=== PATIENT | female | born 1960 | race Caucasian/White ===

== ENCOUNTER 2024-01-31 18:16 | Inpatient (IN) ==
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
[2024-01-31] MEDS: SODIUM CHLORIDE 0.9% 1,000 ML IV STA (18:46)
[2024-01-31] MEDS: ONDANSETRON INJ 2 MG/ML 2 ML VIAL IV STA (18:46)
[2024-01-31 19:11] LABS: iSTAT Creatinine 6.3 mg/dl (0.6-1.3); iSTAT Ionized Calcium 0.99 mmol/l (1.12-1.32); iSTAT Potassium 4.8 mmol/L (3.3-5.0)
[2024-01-31 19:32] LABS: Hematocrit (blood only) 43.2 % (37.0-47.0); Hemoglobin 13.2 g/dl (12.0-16.0); Mean Corpuscular Hemoglobin 27.7 pg (25.0-34.0); Mean Corpuscular Hgb Conc 30.6 g/dL (32.0-36.0); Mean Corpuscular Volume 90.6 fL (80.0-100.0); Mean Platelet Volume 11.3 fL (9.4-12.4); Platelet Count 376 K/uL (130-400); RDW Coefficient of Variation 14.2 % (11.5-14.5); RDW Standard Deviation 47.8 fL (36.4-46.3); Red Blood Count 4.77 M/uL (4.20-5.40)
[2024-01-31 19:38] LABS: Albumin Globulin Ratio 1.6 (0.9-2); Albumin Level 4.6 gm/dl (3.4-5.0); BUN Creatinine Ratio 8.1 (10-20); Bilirubin,Total 0.5 mg/dl (0.2-1.0); Calcium 8.8 mg/dl (8.6-10.3); Creatinine Clr Calc Pharmacy 9.1 ml/min; Est GFR (African American) 8.8 ml/min; Est GFR (Non-African American) 7.6 ml/min; Globulin 2.9 gm/dl (2.5-4.0); Magnesium 1.3 mg/dl (1.7-2.4); Potassium 4.9 mmol/L (3.5-5.1); Total Protein 7.5 gm/dl (6.0-8.3); Troponin I High Sensitivity 8.3 pg/ml (0-14)
[2024-01-31 19:39] LABS: INR 1.1 (0.9-1.1); Partial Thromboplastin Ratio 1.2; Partial Thromboplastin Time 31 Seconds (21-31); Prothrombin Time 11.6 Seconds (9.0-12.0)
[2024-01-31] MEDS: PIPERACILLIN/TAZOBACTAM 4.5 GM/100 ML BAG IV ONE (20:13)
[2024-01-31] MEDS: SODIUM CHLORIDE 0.9% 1,000 ML IV ONE (20:13)
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
[2024-01-31] MEDS: MAGNESIUM SULFATE / D5W 1 GM/100 ML BAG IV STA (20:20)
[2024-01-31 20:43] LABS: Base Excess VBG -21.8 mEq/L; HCO3 VBG 7 mmol/L; Oxygen Saturation VBG 93.4 %; PCO2 VBG 25 mmHg (38-50); PO2 VBG 77 mmHg; pH VBG 7.06 (7.36-7.41)
[2024-01-31 21:18] LABS: Basophils # (auto) 0.05 K/uL (0.00-0.20); Basophils % (auto) 0.2 %; Echinocytes 2+; Immature Granulocytes % (auto) 0.7 %; Lymphocytes % (auto) 6.9 %; Monocytes # (auto) 1.61 K/uL (0.11-0.59); Monocytes % (auto) 5.5 %; Neutrophils # (auto) 25.24 K/uL (1.40-6.50); Neutrophils % (auto) 86.7 %; Polychromasia 1+
--- NOTE | 2024-01-31 21:24 | CT Scan Report ---
Exam(s): CT ABDOMEN + PELVIS Without Contrast EXAM: CT Abdomen and Pelvis Without Intravenous Contrast CLINICAL HISTORY: Vomiting. TECHNIQUE: Axial computed tomography images of the abdomen and pelvis without intravenous contrast. CTDI is 15.52 mGy and DLP is 725.98 mGy-cm. Automated exposure control was utilized for the study. A dose lowering technique was utilized adhering to the principles of ALARA. COMPARISON: Renal ultrasound 11/17/2023 FINDINGS: Lung bases: Unremarkable. No mass. No consolidation. Mediastinum: Moderate hiatal hernia. ABDOMEN: Liver: Unremarkable. Gallbladder and bile ducts: Unremarkable. No calcified stones. No ductal dilation. Pancreas: Unremarkable. No ductal dilation. Spleen: Unremarkable. No splenomegaly. Adrenals: Unremarkable. No mass. Kidneys and ureters: Unremarkable. No obstructing stones. No hydronephrosis. Stomach and bowel: Unremarkable. No obstruction. No mucosal thickening. PELVIS: Appendix: Normal appendix. Bladder: Thickening of the urinary bladder wall could relate to nondistention or cystitis. No stones. Reproductive: Unremarkable as visualized. ABDOMEN and PELVIS: Intraperitoneal space: Unremarkable. No free air. No significant fluid collection. Bones/joints: There are degenerative changes of the spine. No acute fracture. No dislocation. Soft tissues: Unremarkable. Vasculature: Unremarkable. No abdominal aortic aneurysm. Lymph nodes: Unremarkable. No enlarged lymph nodes. IMPRESSION: 1. Thickening of the urinary bladder wall could relate to nondistention or cystitis. 2. Moderate hiatal hernia. Electronically signed by: Lala Patel MD 01/31/24 21:23 PM
[2024-01-31] MEDS ORDERED: PROCHLORPERAZINE MALEATE 5 MG TAB PO PRN (21:30)
[2024-01-31] MEDS ORDERED: GLUCOSE 40% GEL 15 GM TUBE PO PRN (21:30)
[2024-01-31] MEDS ORDERED: CARBOHYDRATES FOR HYPOGLYCEMIA PO PRN (21:30)
[2024-01-31] MEDS ORDERED: GLUCOSE 10 TAB/TUBE PO PRN (21:30)
[2024-01-31] MEDS ORDERED: GLUCAGON FOR INJ 1 MG VIAL SQ PRN (21:30)
[2024-01-31] MEDS ORDERED: DEXTROSE 50% 50 ML SYRINGE IV PRN (21:30)
[2024-01-31] MEDS: PLASMA-LYTE A 1,000 ML IV SCH (21:33)
[2024-01-31] MEDS: MAGNESIUM SULFATE / D5W 1 GM/100 ML BAG IV SCH (21:38)
[2024-01-31] MEDS: PANTOprazole 40 MG in SYRINGE 0 ML IV ONE (22:00)
[2024-01-31 22:27] LABS: C Reactive Protein 1.58 mg/dl (0-0.5)
[2024-02-01 00:01] LABS: Base Excess VBG -16.2 mEq/L; HCO3 VBG 11 mmol/L; Oxygen Saturation VBG 68.6 %; PCO2 VBG 29 mmHg (38-50); PO2 VBG 42 mmHg; pH VBG 7.18 (7.36-7.41)
[2024-02-01 00:20] LABS: Calcium 7.5 mg/dl (8.6-10.3); Potassium 5.7 mmol/L (3.5-5.1)
[2024-02-01] MEDS ORDERED: STAT IV/IM STA (00:34)
[2024-02-01 00:53] LABS: BUN Creatinine Ratio 8.6 (10-20); Creatinine Clr Calc Pharmacy 9.6 ml/min; Est GFR (African American) 9.4 ml/min; Est GFR (Non-African American) 8.1 ml/min
[2024-02-01] MEDS: CALCIUM GLUCONATE 1,000 MG/60 ML BAG IV STA (01:08)
[2024-02-01] MEDS: SODIUM BICARBONATE 8.4% 75 MEQ in SODIUM CHLORIDE 0.45 % 1,000 ML IV SCH (01:08)
[2024-02-01 01:34] LABS: Appearance Urine Cloudy (Clear); Bacteria Urine Automated None Seen (None Seen); Bilirubin Urine Negative (Negative); Blood Urine 1+ (Negative); Color Urine Yellow; Glucose Urine UA Negative (Negative); Granular Casts Urine Present /lpf (None Prsent); Ketones Urine 3+ (Negative); Leukocyte Esterase Urine Negative (Negative); Nitrite Urine Negative (Negative); Protein Urine 2+ (Negative); RBC Urine Automated 0-2 /hpf (0-2); Specific Gravity Urine 1.013 (1.000-1.030); Urobilinogen Urine Negative (Negative); WBC Urine Automated 0-5 /hpf (0-5)
--- NOTE | 2024-02-01 06:36 | Hospitalist Progress Note ---
Date of Service February 01, 2024 Assessment & Plan (1) Tachycardia: (2) GERD without esophagitis: (3) Type 2 diabetes mellitus: (4) High anion gap metabolic acidosis: (5) Lactic acid acidosis: (6) Hypomagnesemia: (7) Nausea & vomiting: (8) Acute renal failure: (9) Status post total right knee replacement: Plan Keturah is a 63 year old female with PMH of T2DM presenting acute renal injury. (1) Acute renal failure: Plan: BUN 51, creatinine 5.63 (baseline 0.73) Hx of SEAN in August 2023 after diclofenac use, recent NSAID use (diclofenac 50mg BID x 4 weeks and aspirin 81mg BID) FENa 7.7% indicating intrinsic SEAN / ATN Strict I&O monitoring, [place] catheter placed Nephrology consultation Avoid NSAIDs/nephrotoxic agents Continue trending K, telemetry (2) High anion gap metabolic acidosis: Plan: VBG: pH 7.24, Co2 32, O2 35, HCO3 14; Improving Trend VBG and BMPs If trending in the wrong direction, will consider starting bicarb drip (3) Hypomagnesemia: Plan: Hypomagnesemia at 1.3 on arrival Magnesium sulfate 1 g x 3 administered, improved (4) Nausea & vomiting: Plan: Acute onset of N/V on the evening of 01/29 Leukocytosis at 18.7 with neutrophil predominance; afebrile Procalcitonin WNL, follow blood cultures Compazine 5mg IV q6h as needed for nausea and vomiting Zofran as needed; however, patient reports it does not work for her Continue IVF resuscitation CBC, BMP, Mag, VBG (5) Type 2 diabetes mellitus: Plan: Last A1c at 6.1% on 11/21/2023 Hold metformin Will defer insulin in setting of SEAN T2DM diet BSG ACHS Monitor for hypoglycemia with reduced po intake Adjust regimen as needed A1c 5.3 today (6) GERD without esophagitis: Plan: Hold PRN prilosec Start Protonix IV 40mg daily (7) Tachycardia: Plan: Sinus tachycardia on arrival Suspect secondary to dehydration/GI losses Clinically, patient denies chest pain, pleuritic CP, hemoptysis, or SOB Continuous telemetry monitoring IVF resuscitation (as above) (8) Status post total right knee replacement: Plan: S/p right TKR on 12/13/23 Continue oxycodone 5mg p.o. q6h as needed for pain Plan Disposition: Admit to PCU telemetry Full code T2DM, dialysis renal diet VTE PPx: SCDs Admission and Anticipated Discharge Date Admission Date: January 31, 2024 Supervising Physician Co-Signing Physician Notes I personally examined the patient and verified all myrick points of history and exam, discussed case, and agree with decision making with Dr Marquez Feeling better than last night, but still quite fatigued and somewhat nauseated. Patient and both endorse that she has had a very poor appetite at least since the week before her surgery. It is somewhat difficult for them to put a timeline exactly when she started with early satiety, but vaguely think that she was probably eating okay at [facility] and [facility]. notes she has lost 25-30 pounds since her knee surgery. Knee pain is basically mild. Bowel movements 2-3 days a week. No abdominal painjust feels full extremely easily. Eats a few bites and then has to stop due to feeling full. Vitals noted, in general she is awake and alert oriented pleasant no distress. HEENT normocephalic atraumatic mucous membranes moist. Abdomen is soft nondistended nontender no masses organomegaly. Extremities without sinus clubbing or edema, knee incision appears to be healing well. Acute renal failuremost likely ATNwhich in turn is most likely due to dehydration and NSAIDs. Fortunately no acute indications for dialysiscontinue to watch closely, follow serial exams/serial labs, appreciate nephrology backup nausea and vomitingthis seems to be improvingand likely was related to uremia; at the same time her poor p.o. intake and early satiety predate when she was likely uremic. Differential somewhat broad encompassing anything from anxiety (which she endorses at least preop), slow motility, obstructing mass/etc. (seems less likely given that her symptomsalthough somewhat difficult to obtain an accurate historyseem to have started right around the time of her surgery)follow serial exams/serial history, and then workup further as the situation presents itself SIRSno signs or symptoms of infectionsuspect the white count was largely demargination due to vomiting, and her heart rate probably due to dehydration and nausea. No clear reason for antibiotics at this timebut continue to follow closely. DVT prophylaxisheparin subcu otherwise as above Subjective Pt is a 63 yo female with a past medical history of T2DM, GERD, recent knee replacement who presents to the hospital on 01/30 for increased nausea, vomiting, low appetite, and decreased urine production. Today she is still nausea, but this has improved and she was able to have a few bites of food this morning. No vomiting or bowel movement since yesterday. No fever or chills. No shortness of breath or cough. Review of Systems Review of Systems: Constitutional: denies fever, chills HEENT: denies congestion, sore throat Cardio: denies chest pain, palpitations Resp: denies shortness of breath, cough GI: denies abdominal pain, vomiting, constipation, diarrhea : catheter in place Neuro: denies new numbness, tingling, weakness Physical Exam Physical Exam: General:Alert and oriented, no acute distress, appears fatigued HEENT: Normocephalic, moist oral mucosa, Cardio: Tachycardic, no murmur Resp:Rales at bilateral lung bases, no wheezes GI: Soft and nontender, nondistended, bowel sounds active Skin: Warm, pink, dry. Psych: Mood-affect congruence. Results & Data Results & Data Vital Signs (Past 12 Hours) Vital Signs Temp Pulse Pulse Resp BP Pulse Ox O2 Del Method 02/01/24 03:05 36.9 C 110 H 16 124/71 98 Room Air 02/01/24 01:23 36.8 C 107 H 14 120/71 97 Room Air 01/31/24 23:43 01/31/24 23:07 116 H 01/31/24 21:30 121 H 01/31/24 21:20 37 C 125 H 20 144/82 H 97 Room Air 01/31/24 20:44 126 H 19 134/79 98 01/31/24 20:00 125 H 18 98 Room Air 01/31/24 19:07 121 H 01/31/24 18:58 125 H 19 142/89 H 98 Room Air 01/31/24 18:58 124 H 24 99 Room Air O2 Del Method 02/01/24 03:05 02/01/24 01:23 01/31/24 23:43 Room Air 01/31/24 23:07 01/31/24 21:30 01/31/24 21:20 01/31/24 20:44 01/31/24 20:00 01/31/24 19:07 01/31/24 18:58 01/31/24 18:58 Resident Activity Tracking Resident Involvement: Resident Care Provided Care Provided: Adult Hospital Medicine Resident Supervision Co-Signing Physician Notes I have personally examined the patient and agree with student doctor Harry with exceptions noted below: #Acute renal failure - Cr baseline wnl around 0.6, today 5.63 - FeNa is 7.7% intrinsic - based on pt's history, suspect her chronic poor appetite caused some level of dehydration and that NSAID use of diclofenac twice daily for 4 weeks then caused further injury and pt now has an ATN - will hydrate with IVF today and encourage po intake - nephrology consulted, no dialysis indication at this time #HAGMA - initial pH 7.06, improved today to 7.24 - will continue bicarb today #Nausea/vomiting #Poor appetite with early satiety - notes chronic issue with poor appetite for maybe the last few months, worsened after knee surgery in November - pt states that she just feels full after a few bites of food - pt may benefit from further GI workup once discharged from the hospital for question or gastroparesis or other GI pathology as the cause of her poor intake secondary to early satiety (7) Nausea & vomiting Vomiting type: unspecified Qualified Code(s): R11.2 - Nausea with vomiting, unspecified (8) Acute renal failure Acute renal failure type: unspecified Qualified Code(s): N17.9 - Acute kidney failure, unspecified
[2024-02-01 07:19] LABS: Base Excess VBG -12.5 mEq/L; HCO3 VBG 14 mmol/L; Oxygen Saturation VBG < 60.0 %; PCO2 VBG 32 mmHg (38-50); PO2 VBG 35 mmHg; pH VBG 7.24 (7.36-7.41)
--- NOTE | 2024-02-01 07:31 | XRay Report ---
XR chest 1V portable HISTORY: Vomiting. COMPARISON: Chest 11/21/2023. FINDINGS: No pneumothorax. No pleural effusions. Stable punctate calcified granuloma within the left lung apex. Otherwise, the lungs are clear. The heart is normal in size. There is a moderate hiatus he rnia, unchanged. IMPRESSION: No significant change compared to the prior study. No acute process. ACT 112: Negative or not required by law. Electronically signed by: Juan Hobbs M.D. 02/01/2024 7:30 AM
[2024-02-01 07:33] LABS: Estimated Average Glucose 105 mg/dl; Hemoglobin A1C 5.3 % (4.5-5.6)
[2024-02-01 07:54] LABS: BUN Creatinine Ratio 9.1 (10-20); Calcium 7.5 mg/dl (8.6-10.3); Creatinine Clr Calc Pharmacy 8.9 ml/min; Est GFR (African American) 8.7 ml/min; Est GFR (Non-African American) 7.5 ml/min; Magnesium 2.3 mg/dl (1.7-2.4); Potassium 5.1 mmol/L (3.5-5.1)
[2024-02-01 08:30] LABS: Basophils # (auto) 0.02 K/uL (0.00-0.20); Basophils % (auto) 0.1 %; Hematocrit (blood only) 35.6 % (37.0-47.0); Hemoglobin 11.4 g/dl (12.0-16.0); Immature Granulocytes # (auto) 0.11 K/uL (0.01-0.20); Immature Granulocytes % (auto) 0.6 %; Lymphocytes # (auto) 1.45 K/uL (1.20-3.40); Lymphocytes % (auto) 7.7 %; Mean Corpuscular Hemoglobin 27.9 pg (25.0-34.0); Mean Corpuscular Volume 87.3 fL (80.0-100.0); Mean Platelet Volume 10.7 fL (9.4-12.4); Monocytes # (auto) 1.13 K/uL (0.11-0.59); Neutrophils # (auto) 16.01 K/uL (1.40-6.50); Neutrophils % (auto) 85.6 %; Platelet Count 282 K/uL (130-400); RDW Coefficient of Variation 14.5 % (11.5-14.5); RDW Standard Deviation 46.8 fL (36.4-46.3); Red Blood Count 4.08 M/uL (4.20-5.40); White Blood Count 18.72 K/ul (4.8-10.8)
[2024-02-01] MEDS: PANTOprazole 40 MG in SYRINGE 0 ML IV SCH (10:48)
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
--- NOTE | 2024-02-01 13:02 | Billing Data ---
Date of Service February 01, 2024 Coding Level of Care Code 94261 SUB INP/OBS CARE
[2024-02-01] MEDS: ONDANSETRON INJ 2 MG/ML 2 ML VIAL IV PRN (20:51)
[2024-02-01] MEDS: HEPARIN SOD 5,000 UNIT/0.5 ML VIAL SQ SCH (20:52)
[2024-02-01] MEDS ORDERED: ROSUVASTATIN CALCIUM 20 MG TAB PO SCH (21:00)
--- NOTE | 2024-02-02 00:21 | Electrocardiogram Report ---
Test Reason : Blood Pressure : / mmHG Vent. Rate : 130 BPM Atrial Rate : 130 BPM P-R Int : 132 ms QRS Dur : 062 ms QT Int : 302 ms P-R-T Axes : 056 050 064 degrees QTc Int : 444 ms Sinus tachycardia Nonspecific T wave abnormality When compared with ECG of 21-NOV-2023 13:26, Vent. rate has increased BY 47 BPM Confirmed by Rhys De Leon ([id number]) on 02/02/2024 12:21:11 AM Referred By: REFERRED SELF Confirmed By:Rhys De Leon
[2024-02-02] MEDS: PROCHLORPERAZINE 5 MG in SYRINGE 4 ML IV PRN (01:29)
--- NOTE | 2024-02-02 06:42 | Hospitalist Progress Note ---
Date of Service February 02, 2024 Assessment & Plan (1) Tachycardia: (2) GERD without esophagitis: (3) Type 2 diabetes mellitus: (4) High anion gap metabolic acidosis: (5) Lactic acid acidosis: (6) Hypomagnesemia: (7) Nausea & vomiting: (8) Acute renal failure: (9) Status post total right knee replacement: Plan Keturah is a 63 year old female with PMH of T2DM presenting acute renal injury. #Acute renal failure, ATN - Cr baseline wnl around 0.6, on admission was 5.63, Cr today 6.2 - Hx of SEAN in August 2023 after diclofenac use, recent NSAID use (diclofenac 50mg BID x 4 weeks and aspirin 81mg BID) - FENa 7.7% indicating intrinsic SEAN / ATN - based on pt's history, suspect her chronic poor appetite caused some level of dehydration and that NSAID use of diclofenac twice daily for 4 weeks then caused further injury and pt now has an ATN - Nephrology consultation; no acute dialysis indication at this time, continue to encourage intake and hydrate #HAGMA, improving - initial pH 7.06, improved with IV sodium bicarb - will continue bicarb today id advised by nephrology - AG today 17 (39 on admission) #Nausea/vomiting #Poor appetite with early satiety - notes chronic issue with poor appetite for maybe the last few months, worsened after knee surgery in November with acute worsening 01/29 - pt states that she just feels full after a few bites of food - was on ozempic but only for 2 doses, last dose 12/06 - pt may benefit from further GI workup once discharged from the hospital for question or gastroparesis or other GI pathology as the cause of her poor intake secondary to early satiety #Type 2 diabetes mellitus: - Last A1c at 5.3% 01/31 - Hold metformin, Will defer insulin in setting of SEAN #GERD without esophagitis - Hold home po prilosec while po intake is poor, will do Protonix IV 40mg daily #Status post total right knee replacement - S/p right TKR on 12/13/23 - Continue oxycodone 5mg p.o. q6h as needed for pain VTE PPx: SCDs Admission and Anticipated Discharge Date Admission Date: January 31, 2024 Supervising Physician Co-Signing Physician Notes I personally examined the patient and verified all myrick points of history and exam, discussed case, and agree with decision making with Dr Marquez feels slightly better than yesterday. quite tired, still early satiety, but a little less nauseated Vitals noted, in general she is awake and alert oriented pleasant no distress. HEENT normocephalic atraumatic mucous membranes moist. Abdomen is soft nondistended nontender no masses organomegaly. Extremities without sinus clubb ing or edema, knee incision appears to be healing well. Acute renal failuremost likely ATNwhich in turn is most likely due to dehydration and NSAIDs. Fortunately still no acute indications for d ialysiscontinue to watch closely, follow serial exams/serial labs, appreciate nephrology backup nausea and vomitingthis seems to still be improvingand likely was acutely related to uremia; at the same time her poor p.o. intake and early satiety predate when she was likely uremic. Differential somewhat broad encompassing anything from anxiety (which she endorses at least preop), slow motility (either de lachelle or GLP related), functional dyspepsia, obstructing mass/etc. (seems less likely given that her symptomsalthough somewhat difficult to obtain an accurate historyseem to have started right around the time of her surgery)follow serial exams/serial history, and then workup further as the situation presents itself - but with slight improvement today - continue to follow for now SIRSno signs or symptoms of infectionsuspect the white count was largely demargination due to vomiting, and her heart rate probably due to dehydration and nausea. Still no clear reason for antibiotics at this timebut continue to follow closely. DVT prophylaxisheparin subcu otherwise as above Subjective Today, pt states since last night she has been feeling quite a bit better, not as weak and exhausted. She states she has struggled to eat for the last few weeks and it has improved some here as she was able to eat a few bites last night prior to feeling full. Overall feeling better today. No chest pain or SOB. Did take some Compazine last night for nausea which helped. She states when it comes to her ozempic, she took two doses with her last dose being December 06 since she was not suppose to take any after that point due to her surgery. She did not continue to take any after surgery. States her went to get her medications in December and it had automatically refilled so he just picked everything up, but she had not used it. noted yesterday afternoon that she has maybe lost 20 lbs since her knee surgery due to very poor intake. Review of Systems Review of Systems: Per HPI. Physical Exam Physical Exam: General:Alert and oriented, no acute distress, more lively today but still fatigued appearing HEENT: Normocephalic, moist oral mucosa, Cardio: Regular rate and rhythm, no murmur, Resp:Lungs clear to auscultation b/l, no wheezes or rhonchi, GI: Soft and nontender, nondistended, bowel sounds active Skin: Warm, pink, dry, Results & Data Results & Data Vital Signs (Past 12 Hours) Vital Signs Temp Pulse Pulse Resp BP Pulse Ox O2 Del Method 02/02/24 02:42 36.9 C 86 18 109/70 93 Room Air 02/02/24 01:35 36.8 C 02/01/24 23:20 88 02/01/24 23:00 02/01/24 22:34 37.2 C 95 H 18 118/70 95 Room Air O2 Del Method 02/02/24 02:42 02/02/24 01:35 02/01/24 23:20 02/01/24 23:00 Room Air 02/01/24 22:34 Resident Activity Tracking Resident Involvement: Resident Care Provided Care Provided: Adult Hospital Medicine (7) Nausea & vomiting Vomiting type: unspecified Qualified Code(s): R11.2 - Nausea with vomiting, unspecified (8) Acute renal failure Acute renal failure type: unspecified Qualified Code(s): N17.9 - Acute kidney failure, unspecified
[2024-02-02 07:10] LABS: Basophils # (auto) 0.02 K/uL (0.00-0.20); Basophils % (auto) 0.2 %; Eosinophils # (auto) 0.01 K/uL (0.00-0.50); Eosinophils % (auto) 0.1 %; Hematocrit (blood only) 29.3 % (37.0-47.0); Hemoglobin 9.8 g/dl (12.0-16.0); Immature Granulocytes # (auto) 0.07 K/uL (0.01-0.20); Immature Granulocytes % (auto) 0.7 %; Lymphocytes # (auto) 1.69 K/uL (1.20-3.40); Mean Corpuscular Hemoglobin 27.8 pg (25.0-34.0); Mean Corpuscular Hgb Conc 33.4 g/dL (32.0-36.0); Mean Platelet Volume 10.9 fL (9.4-12.4); Monocytes # (auto) 0.67 K/uL (0.11-0.59); Monocytes % (auto) 6.4 %; Neutrophils # (auto) 8.07 K/uL (1.40-6.50); Neutrophils % (auto) 76.6 %; Platelet Count 221 K/uL (130-400); RDW Coefficient of Variation 14.4 % (11.5-14.5); RDW Standard Deviation 43.7 fL (36.4-46.3); Red Blood Count 3.53 M/uL (4.20-5.40); White Blood Count 10.53 K/ul (4.8-10.8)
[2024-02-02 07:23] LABS: BUN Creatinine Ratio 9.5 (10-20); Calcium 6.9 mg/dl (8.6-10.3); Creatinine Clr Calc Pharmacy 8.1 ml/min; Est GFR (African American) 7.7 ml/min; Est GFR (Non-African American) 6.6 ml/min; Potassium 4.1 mmol/L (3.5-5.1)
--- NOTE | 2024-02-02 10:47 | Nephrology Progress Note ---
Date of Service February 02, 2024 Assessment & Plan (1) Acute renal failure: (2) High anion gap metabolic acidosis: (3) Nausea & vomiting: (4) Type 2 diabetes mellitus without complication, without long-term current use of insulin: (5) Anemia: Plan 63-year-old female with baseline normal renal function, baseline creatinine 0.6- 0.7, admitted with acute kidney injury, hyperkalemia and metabolic acidosis with history of poor p.o. intake for weeks and nausea and vomiting for 2 days. Blood pressure was stable but clinically volume depleted. Urinalysis with low grade proteinuria but no hematuria. Renal imaging with no postrenal obstruction. SEAN most likely secondary to ATN with volume depletion and poor p.o. intake for days to weeks. Kidney function continues to worsen rapidly, creatinine up to 6.2, hypocalcemia and dropping hemoglobin but potassium and bicarbonate imp roved. Relatively low urine output but no sign of volume overload. Blood pressures staying relatively stable. --Change IV fluid to normal saline, encourage p.o. intake, monitor intake and output and aim for net positive --Calcium gluconate 1 g IV x 1 dose now --Although likelihood is low, considering some proteinuria, rapid worsening of kidney function will order serology. --Iron study, B12, folate -- Avoid all nephrotoxic medications including NSAIDs. -- No indication for dialysis at this time, no significant uremic symptoms except some nausea and fatigue, continue to monitor electrolyte, volume status closely and assess for any need for dialysis. Kidney function might continue to worsen before stabilizing. Considering the degree of renal impairment, even if kidney function starts to stabilize, it may take time to see significant improvement. Admission and Anticipated Discharge Date Admission Date: January 31, 2024 Valerie Rebollar was seen and evaluated this morning. Overall she feels fatigued and exhausted. Continues to have nausea but no vomiting. No diarrhea or abdominal pain. No fever or chills. No shortness of breath or chest pain. Blood pressure stable. Urine output relatively low, only 400 mL over last 24 hours. Kidney function continues to worsen rapidly, creatinine up to 6.2. Metabolic acidosis resolved but calcium dropped further. Hemoglobin dropped to 9.8. Review of Systems Review of Systems: Detailed review of system was done and pertinent positives and negatives are mentioned above. Physical Exam Constitutional: WD/WN, vitals as above + ill appearing; no acute distress Eyes: + anicteric sclerae Respiratory: Auscultation: lungs clear to auscultation bilaterally Cardiovascular: RRR, no murmur, no edema Gastrointestinal (Abdomen): Inspection/Auscultation: abdomen normal to inspection Percussion/Palpation: abdomen soft; abdomen nontender Neurologic: no focal motor deficits Psychiatric: Orientation: alert and oriented x 3 Affect: euthymic affect Results & Data Vital Signs (Past 12 Hours) Vital Signs Temp Pulse Pulse Resp BP Pulse Ox O2 Del Method 02/02/24 07:23 36.8 C 94 H 18 125/76 93 Room Air 02/02/24 02:42 36.9 C 86 18 109/70 93 Room Air 02/02/24 01:35 36.8 C 02/01/24 23:20 88 02/01/24 23:00 O2 Del Method 02/02/24 07:23 02/02/24 02:42 02/02/24 01:35 02/01/24 23:20 02/01/24 23:00 Room Air PG Care Time/CCT Total # of Minutes Spent Total Time Spent with Patient: Total time spent is greater than 50% in coordination of care (as documented) at patient's floor/unit and/or counseling patient: Coding Level of Care Code 76976 SUB INP/OBS CARE 3/50MIN Diagnoses Acute renal failure N17.9 Acute renal failure type: unspecified High anion gap metabolic acidosis E87.29 Nausea & vomiting R11.2 Vomiting type: unspecified Type 2 diabetes mellitus without complication, without long-term current use of insulin E11.9 Anemia D64.9 (1) Acute renal failure Acute renal failure type: unspecified Qualified Code(s): N17.9 - Acute kidney failure, unspecified (3) Nausea & vomiting Vomiting type: unspecified Qualified Code(s): R11.2 - Nausea with vomiting, unspecified
[2024-02-02] MEDS: SODIUM CHLORIDE 0.9% 1,000 ML IV SCH (13:02)
[2024-02-02] MEDS: CALCIUM GLUCONATE 1,000 MG/60 ML BAG IV STA (13:02)
[2024-02-02 13:12] LABS: Folate (Folic Acid),Ser orPlas 5.78 ng/ml (>5.38)
--- NOTE | 2024-02-02 16:28 | Billing Data ---
Date of Service February 02, 2024 Coding Level of Care Code 69209 SUB INP/OBS CARE
[2024-02-03 06:14] LABS: Basophils # (auto) 0.02 K/uL (0.00-0.20); Basophils % (auto) 0.2 %; Eosinophils # (auto) 0.01 K/uL (0.00-0.50); Eosinophils % (auto) 0.1 %; Hematocrit (blood only) 30.7 % (37.0-47.0); Hemoglobin 10.5 g/dl (12.0-16.0); Immature Granulocytes # (auto) 0.04 K/uL (0.01-0.20); Immature Granulocytes % (auto) 0.4 %; Lymphocytes # (auto) 0.93 K/uL (1.20-3.40); Lymphocytes % (auto) 9.5 %; Mean Corpuscular Hemoglobin 28.3 pg (25.0-34.0); Mean Corpuscular Hgb Conc 34.2 g/dL (32.0-36.0); Mean Corpuscular Volume 82.7 fL (80.0-100.0); Mean Platelet Volume 10.8 fL (9.4-12.4); Monocytes # (auto) 0.71 K/uL (0.11-0.59); Monocytes % (auto) 7.3 %; Neutrophils # (auto) 8.07 K/uL (1.40-6.50); Neutrophils % (auto) 82.5 %; Platelet Count 206 K/uL (130-400); RDW Coefficient of Variation 13.9 % (11.5-14.5); RDW Standard Deviation 41.6 fL (36.4-46.3); Red Blood Count 3.71 M/uL (4.20-5.40); White Blood Count 9.78 K/ul (4.8-10.8)
[2024-02-03 06:32] LABS: BUN Creatinine Ratio 8.2 (10-20); Calcium 7.1 mg/dl (8.6-10.3); Creatinine Clr Calc Pharmacy 6.8 ml/min; Est GFR (African American) 6.2 ml/min; Est GFR (Non-African American) 5.3 ml/min; Magnesium 1.9 mg/dl (1.7-2.4); Potassium 4.2 mmol/L (3.5-5.1)
--- NOTE | 2024-02-03 06:56 | Hospitalist Progress Note ---
Date of Service February 03, 2024 Assessment & Plan (1) Tachycardia: (2) GERD without esophagitis: (3) Type 2 diabetes mellitus: (4) High anion gap metabolic acidosis: (5) Lactic acid acidosis: (6) Hypomagnesemia: (7) Nausea & vomiting: (8) Acute renal failure: (9) Status post total right knee replacement: Plan Keturah is a 63 year old female with PMH of T2DM presenting acute renal injury. #Acute renal failure, ATN - Cr baseline wnl around 0.6, on admission was 5.63, Cr today 7.45 - Hx of SEAN in August 2023 after diclofenac use, recent NSAID use (diclofenac 50mg BID x 4 weeks and aspirin 81mg BID) - FENa 7.7% indicating intrinsic SEAN / ATN - based on pt's history, suspect her chronic poor appetite caused some level of dehydration and that NSAID use of diclofenac twice daily for 4 weeks then caused further injury and pt now has an ATN - Nephrology consultation; no acute dialysis indication at this time, continue to encourage intake and hydrate #HAGMA, improving - initial pH 7.06, improved with IV sodium bicarb - sodium bicarb transitioned to NSS per nephro - AG today 16 (39 on admission) #Nausea/vomiting #Poor appetite with early satiety - notes chronic issue with poor appetite for maybe the last few months, worsened after knee surgery in November with acute worsening 01/29 - pt states that she just feels full after a few bites of food - was on ozempic but only for 2 doses, last dose 12/06 - pt may benefit from further GI workup once discharged from the hospital for question or gastroparesis or other GI pathology as the cause of her poor intake secondary to early satiety #Type 2 diabetes mellitus: - Last A1c at 5.3% 01/31 - Hold metformin, Will defer insulin in setting of SEAN #GERD without esophagitis - Hold home po prilosec while po intake is poor, will do Protonix IV 40mg daily #Status post total right knee replacement - S/p right TKR on 12/13/23 - Continue oxycodone 5mg p.o. q6h as needed for pain VTE PPx: SCDs Admission and Anticipated Discharge Date Admission Date: January 31, 2024 Supervising Physician Co-Signing Physician Notes I personally examined the patient and verified all myrick points of history and exam, discussed case, and agree with decision making with Dr Marquez feeling more nauseated. Really cannot eat well. Nephrology input appreciated. No abdominal painjust very pervasive nausea. Vitals noted, in general she is awake and alert oriented pleasant no distress. HEENT normocephalic atraumatic mucous membranes moist. Abdomen is soft nondistended nontender no masses organomegaly. Extremities without sinus clubbing or edema, knee incision appears to be healing well. Acute renal failuremost likely ATNwhich in turn is most likely due to dehydration and NSAIDs. Fortunately still no acute indications for dialysiscontinue to watch closely, follow serial exams/serial labs, appreciate nephrology backup; At the same time unfortunately her creatinine continues to worsen and I worry that her nausea may be more of a uremic nausea acutely. Agree with nephrology might end up needing dialysis at least acutely sooner rather than latercontinue to follow. nausea and vomiting Worse again todayacutely related to uremia; at the same time her poor p.o. intake and early satiety predate when she was likely uremic. Differential somewhat broad encompassing anything from anxiety (which she endorses at least preop), slow motility (either de lachelle or GLP related), functional dyspepsia, obstructing mass/etc. (seems less likely given that her symptomsalthough somewhat difficult to obtain an accurate historyseem to have started right around the time of her surgery)follow serial exams/serial history, and then workup further as the situation presents itself - with symptomatic worsening todaytwice daily Pepcid/twice daily Protonix; already on Zofran, hesitate to utilize much Phenergan, on Compazine. Encourage small amounts of p.o. intake to keep something in her stomach. SIRSno signs or symptoms of infectionsuspect the white count was largely demargination due to vomiting, and her heart rate probably due to dehydration and nausea. Has not shown any indication for antibiotics DVT prophylaxisheparin subcu otherwise as above Subjective Today, pt states that she feels better today than she did yesterday but did have some dry heaving this morning. She states she took some of the Compazine last night when she felt nauseated but that she started to get odd hallucinations with it like that her mother who has passed was walking around the room. She states the hallucinations were not scary but that she definitely felt weird with the compazine. She states dinner last night went about how it goes at home prior to admission where she would be hungry for something but after just a few bites she would feel totally stuffed and unable to eat anymore. She states she has even actually been taking less metformin than prescribed the last few weeks since her surgery as well. Overall improved from yesterday to today but still suffering from nausea and early satiety. Review of Systems Review of Systems: Per HPI. Physical Exam Physical Exam: General:Alert and oriented, no acute distress, more energetic/brighter appearing today HEENT: Normocephalic, moist oral mucosa, Cardio: Regular rate and rhythm, no murmur, Resp:Lungs clear to auscultation b/l, no wheezes or rhonchi, GI: Soft and nontender, nondistended, bowel sounds active Skin: Warm, pink, dry, Results & Data Results & Data Vital Signs (Past 12 Hours) Vital Signs Temp Pulse Pulse Resp BP Pulse Ox O2 Del Method 02/03/24 03:18 36.8 C 91 H 17 149/81 H 93 Room Air 02/02/24 23:00 02/02/24 22:50 36.7 C 89 18 155/93 H 91 Room Air 02/02/24 22:26 99 H 02/02/24 19:50 Room Air 02/02/24 19:42 36.6 C 85 18 154/87 H 92 Room Air O2 Del Method 02/03/24 03:18 02/02/24 23:00 Room Air 02/02/24 22:50 02/02/24 22:26 02/02/24 19:50 02/02/24 19:42 Resident Activity Tracking Resident Involvement: Resident Care Provided Care Provided: Adult Hospital Medicine (7) Nausea & vomiting Vomiting type: unspecified Qualified Code(s): R11.2 - Nausea with vomiting, unspecified (8) Acute renal failure Acute renal failure type: unspecified Qualified Code(s): N17.9 - Acute kidney failure, unspecified
[2024-02-03] MEDS: ACETAMINOPHEN 325 MG TAB PO PRN (08:09)
--- NOTE | 2024-02-03 12:57 | Nephrology Progress Note ---
Date of Service February 03, 2024 Assessment & Plan (1) Acute renal failure: (2) Anemia: (3) Nausea & vomiting: (4) High anion gap metabolic acidosis: (5) Type 2 diabetes mellitus without complication, without long-term current use of insulin: Plan 63-year-old female with baseline normal renal function, baseline creatinine 0.6- 0.7, admitted with acute kidney injury, hyperkalemia and metabolic acidosis with history of poor p.o. intake for weeks and nausea and vomiting for 2 days. Blood pressure was stable but clinically volume depleted. Urinalysis with low grade proteinuria but no hematuria. CT A/P with no postrenal obstruction, no concern for renal artery or venous thrombosis. SEAN most likely secondary to ATN with volume depletion and poor p.o. intake for days to weeks. Serology pending. Kidney function continues to worsen rapidly, creatinine up to 7.5, hypocalcemia and dropping hemoglobin but potassium and bicarbonate improved.Iron study, B 12, folate normal. Relatively low urine output but no sign of volume overload. Blood pressures has been high. --Continue normal saline, encourage p.o. intake, monitor intake and output and aim for net positive -- Avoid all nephrotoxic medications including NSAIDs. -- No indication for dialysis at this time, although rapid rise in cr and some uremic symptoms are concerning. We discussed briefly possible role of temporary dialysis if kidney function continues to worsen and or develop electrolyte abnormality, volume overload or significant uremic symptoms. 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 Will continue to monitor closely over the weekend and assess for any need for dialysis. Kidney function might continue to worsen before stabilizing. Considering the degree of renal impairment, even if kidney function starts to stabilize, it may take time to see significant improvement. Admission and Anticipated Discharge Date Admission Date: January 31, 2024 Subjective Keturah was seen and evaluated this morning. Overall she feels about the same, has occasional nausea and dry heaving this morning. No diarrhea or abdominal pain. No fever or chills. No shortness of breath or chest pain. Blood pressure has been high. Urine output slightly improved to 700 mL over last 24 hours. Kidney function continues to worsen rapidly, creatinine up to 7.5/bun 61. Metabolic acidosis resolved, K normal but calcium dropped further. Hemoglobin improved to >10. Review of Systems Review of Systems: Detailed review of system was done and pertinent positives and negatives are mentioned above. Physical Exam Constitutional: WD/WN, vitals as above + ill appearing; no acute distress Eyes: + anicteric sclerae Neck: normal visual inspection Respiratory: Auscultation: lungs clear to auscultation bilaterally Cardiovascular: RRR, no murmur, no edema Musculoskeletal: Extremities: extremities normal to inspection Neurologic: no focal motor deficits Psychiatric: Orientation: alert and oriented x 3 Affect: euthymic affect Results & Data Vital Signs (Past 12 Hours) Vital Signs Temp Pulse Resp BP Pulse Ox O2 Del Method 02/03/24 11:31 36.8 C 87 18 156/91 H 91 Room Air 02/03/24 07:48 Room Air 02/03/24 07:04 36.6 C 91 H 18 151/91 H 91 Room Air 02/03/24 03:18 36.8 C 91 H 17 149/81 H 93 Room Air PG Care Time/CCT Total # of Minutes Spent Total Time Spent with Patient: Total time spent is greater than 50% in coordination of care (as documented) at patient's floor/unit and/or counseling patient: Coding Level of Care Code 07643 SUB INP/OBS CARE 3/50MIN Diagnoses Acute renal failure N17.9 Acute renal failure type: unspecified Anemia D64.9 Nausea & vomiting R11.2 Vomiting type: unspecified High anion gap metabolic acidosis E87.29 Type 2 diabetes mellitus without complication, without long-term current use of insulin E11.9 (1) Acute renal failure Acute renal failure type: unspecified Qualified Code(s): N17.9 - Acute kidney failure, unspecified (3) Nausea & vomiting Vomiting type: unspecified Qualified Code(s): R11.2 - Nausea with vomiting, unspecified
--- NOTE | 2024-02-03 16:13 | Billing Data ---
Date of Service February 03, 2024 Coding Level of Care Code 57920 SUB INP/OBS CARE
[2024-02-03] MEDS: FAMOTIDINE 20MG IV PUSH 20 MG/5 ML SYR IV STA (16:50)
[2024-02-03] MEDS: PANTOprazole 40 MG in SYRINGE 0 ML IV SCH (20:08)
[2024-02-03] MEDS: FAMOTIDINE 20MG IV PUSH 20 MG/5 ML SYR IV SCH (20:08)
--- NOTE | 2024-02-04 06:46 | Hospitalist Progress Note ---
Date of Service February 04, 2024 Assessment & Plan (1) Tachycardia: (2) GERD without esophagitis: (3) Type 2 diabetes mellitus: (4) High anion gap metabolic acidosis: (5) Lactic acid acidosis: (6) Hypomagnesemia: (7) Nausea & vomiting: (8) Acute renal failure: (9) Status post total right knee replacement: Plan Keturah is a 63 year old female with PMH of T2DM presenting acute renal injury. #Acute renal failure, ATN - Cr baseline wnl around 0.6, on admission was 5.63, Cr today 7.9 - Hx of SEAN in August 2023 after diclofenac use, recent NSAID use (diclofenac 50mg BID x 4 weeks and aspirin 81mg BID) - FENa 7.7% indicating intrinsic SEAN / ATN - based on pt's history, suspect her chronic poor appetite caused some level of dehydration and that NSAID use of diclofenac twice daily for 4 weeks then caused further injury and pt now has an ATN - Nephrology consultation; no acute dialysis indication at this time, continue to encourage intake and hydrate #HAGMA, stable - initial pH 7.06, improved with IV sodium bicarb - sodium bicarb transitioned to NSS per nephro - AG today 18 (39 on admission) which is up from 16 yesterday - suspect the lack of further improvement is ATN with worsening kidney function vs poor po intake causing starvation ketosis, if hyperchloremic would switch to D5 solution #Nausea/vomiting #Poor appetite with early satiety - notes chronic issue with poor appetite for maybe the last few months, worsened after knee surgery in November with acute worsening 01/29 - pt states that she just feels full after a few bites of food - was on ozempic but only for 2 doses, last dose 12/06 - pt may benefit from further GI workup once discharged from the hospital for question or gastroparesis or other GI pathology as the cause of her poor intake secondary to early satiety - acutely, her nausea/vomiting most likely secondary to her acute renal failure/uremia #Type 2 diabetes mellitus: - Last A1c at 5.3% 01/31 - Hold metformin, Will defer insulin in setting of SEAN with reassuring last A1c #GERD without esophagitis - Hold home po prilosec while po intake is poor, - protonix 40 mg BID IV and famotidine 20 mg daily started here #Status post total right knee replacement - S/p right TKR on 12/13/23 - Continue oxycodone 5mg p.o. q6h as needed for pain VTE PPx: SCDs (Cristino VTE predictive score of 3) Admission and Anticipated Discharge Date Admission Date: January 31, 2024 Supervising Physician Co-Signing Physician Notes Patient seen and examined, chart reviewed, case discussed with Dr. Marquez and I agree with the assessment and plan as above except as otherwise noted Labs and images reviewed 61-year-old female who presents with dense ATN likely from poor p.o. intake with NSAID use. Has not peaked, continues to uptrend now 7.5. No hyperkalemia, bicarbonate improving but still mildly low. Hypertensive, agree with amlodipine. She is not overtly volume overloaded. Support provided. She is not an uric, UOP is improving. Trend BMP daily. No emergent indication for dialysis at this time, which patient prefers to avoid if at all possible. She does continue to have a anion gap metabolic acidosis with a delta ratio suggestive of pure HAGMA with uremia. She is not hyperchloremic, saline is continued at this time. She has had very poor p.o. intake, may have some underlying starvation ketosis as well. Denies any history of hiatal hernia and GERD which may be contributing to her nausea, and is already on therapy with PPI/H2/Zofran. Agree with above Subjective Today, pt states she feels about the same as yesterday overall. She did vomit once this morning after she ate a cup of lemon [place] ice. Overall still just feels "crappy" but states she would ideally like to avoid dialysis at all costs. No chest pain or SOB. Intake is going about the same where she would feel hungry but then get full after a few bites and she has been trying to drink fluids but feels full after a small amount of fluids as well. Review of Systems Review of Systems: Per HPI. Physical Exam Physical Exam: General:Alert and oriented, no acute distress, fatigued appearing today HEENT: Normocephalic, moist oral mucosa, Cardio: Regular rate and rhythm, no murmur, Resp:Lungs clear to auscultation b/l, no wheezes or rhonchi, GI: Soft and nontender, nondistended, bowel sounds active Skin: Warm, pink, dry, Results & Data Results & Data Vital Signs (Past 12 Hours) Vital Signs Temp Pulse Pulse Resp BP Pulse Ox O2 Del Method 02/04/24 02:44 36.8 C 88 18 149/89 H 94 Room Air 02/04/24 00:49 84 02/03/24 23:39 167/96 H 02/03/24 22:55 36.6 C 89 18 168/97 H 94 Room Air 02/03/24 19:12 36.9 C 87 18 160/74 H 93 Room Air Resident Activity Tracking Resident Involvement: Resident Care Provided Care Provided: Adult Hospital Medicine (7) Nausea & vomiting Vomiting type: unspecified Qualified Code(s): R11.2 - Nausea with vomiting, unspecified (8) Acute renal failure Acute renal failure type: unspecified Qualified Code(s): N17.9 - Acute kidney failure, unspecified
[2024-02-04 07:37] LABS: Albumin Level 2.9 gm/dl (3.4-5.0); BUN Creatinine Ratio 7.3 (10-20); Creatinine Clr Calc Pharmacy 7.1 ml/min; Est GFR (African American) 5.7 ml/min; Phosphorus 7.6 mg/dl (2.5-4.9); Potassium 3.9 mmol/L (3.5-5.1)
[2024-02-04] MEDS ORDERED: FAMOTIDINE 20 MG TAB PO SCH (09:00)
[2024-02-04] MEDS: oxyCODONE HCL IR 5 MG TAB (IMMEDIATE RELEASE) PO PRN (09:44)
--- NOTE | 2024-02-04 11:17 | Nephrology Progress Note ---
Date of Service February 04, 2024 Assessment & Plan (1) Acute renal failure: (2) Anemia: (3) Nausea & vomiting: (4) High anion gap metabolic acidosis: (5) Type 2 diabetes mellitus without complication, without long-term current use of insulin: Plan 63-year-old female with baseline normal renal function, baseline creatinine 0.6- 0.7, admitted with acute kidney injury, hyperkalemia and metabolic acidosis with history of poor p.o. intake for weeks and nausea and vomiting for 2 days. Blood pressure was stable but clinically volume depleted. Urinalysis with low grade proteinuria but no hematuria. CT A/P with no postrenal obstruction, no concern for renal artery or venous thrombosis. SEAN most likely secondary to ATN with volume depletion and poor p.o. intake for days to weeks. Serology pending. Kidney function continues to worsen rapidly, creatinine up to 7.5, hypocalcemia and dropping hemoglobin but potassium and bicarbonate improved.Iron study, B 12, folate normal. Relatively low urine output but no sign of volume overload. Blood pressures has been high. --start on Tums 1 tab TIDM --Continue normal saline for now as she still has vomiting and poor po intake, encourage p.o. intake, monitor intake and output and aim for net positive --start on Amlodipine 5 mg po daily -- Avoid all nephrotoxic medications including NSAIDs. -- No indication for dialysis at this time, although rapid rise in cr and some uremic symptoms are concerning. We again discussed possible role of temporary dialysis if kidney function continues to worsen and or develop electrolyte abnormality, volume overload or significant uremic symptoms. Will continue to monitor closely over the weekend and assess for any need for dialysis. Kidney function might continue to worsen before stabilizing. Considering the degree of renal impairment, even if kidney function starts to stabilize, it may take time to see significant improvement. Admission and Anticipated Discharge Date Admission Date: January 31, 2024 Valerie Rebollar was seen and evaluated this morning. Overall she feels about the same, vomited once this morning. No diarrhea or abdominal pain. No fever or chills. No shortness of breath or chest pain. Blood pressure has been high. Urine output improved to 900 mL over last 24 hours. Kidney function continues to worsen , creatinine up to 7.9/bun 58. Metabolic acidosis resolved, K normal. Hemoglobin improved to >10. Review of Systems Review of Systems: Detailed review of system was done and pertinent positives and negatives are mentioned above. Physical Exam Constitutional: WD/WN, vitals as above no acute distress Respiratory: Auscultation: lungs clear to auscultation bilaterally Cardiovascular: RRR, no murmur, no edema Musculoskeletal: Extremities: extremities normal to inspection Neurologic: no focal motor deficits Psychiatric: Orientation: alert and oriented x 3 Affect: euthymic affect Results & Data Vital Signs (Past 12 Hours) Vital Signs Temp Pulse Pulse Resp BP Pulse Ox O2 Del Method 02/04/24 11:00 36.8 C 87 18 163/102 H 94 Room Air 02/04/24 07:22 36.8 C 84 17 158/96 H 92 Room Air 02/04/24 02:44 36.8 C 88 18 149/89 H 94 Room Air 02/04/24 00:49 84 02/03/24 23:39 167/96 H PG Care Time/CCT Total # of Minutes Spent Total Time Spent with Patient: Total time spent is greater than 50% in coordination of care (as documented) at patient's floor/unit and/or counseling patient: Coding Level of Care Code 55038 SUB INP/OBS CARE 3/50MIN Diagnoses Acute renal failure N17.9 Acute renal failure type: unspecified Anemia D64.9 Nausea & vomiting R11.2 Vomiting type: unspecified High anion gap metabolic acidosis E87.29 Type 2 diabetes mellitus without complication, without long-term current use of insulin E11.9 (1) Acute renal failure Acute renal failure type: unspecified Qualified Code(s): N17.9 - Acute kidney failure, unspecified (3) Nausea & vomiting Vomiting type: unspecified Qualified Code(s): R11.2 - Nausea with vomiting, unspecified
[2024-02-04] MEDS: CALCIUM CARBONATE 500 MG CHEWABLE TAB PO SCH (11:44)
--- NOTE | 2024-02-04 12:44 | Billing Data ---
Date of Service February 04, 2024 Coding Level of Care Code 16333 SUB INP/OBS CARE MIN
[2024-02-04] MEDS: amLODIPine BESYLATE 5 MG TAB PO SCH (13:37)
--- NOTE | 2024-02-05 06:46 | Hospitalist Progress Note ---
Date of Service February 05, 2024 Assessment & Plan (1) Tachycardia: (2) GERD without esophagitis: (3) Type 2 diabetes mellitus: (4) High anion gap metabolic acidosis: (5) Lactic acid acidosis: (6) Hypomagnesemia: (7) Nausea & vomiting: (8) Acute renal failure: (9) Status post total right knee replacement: Plan Keturah is a 63 year old female with PMH of T2DM presenting acute renal injury. #Acute renal failure, ATN - Cr baseline wnl around 0.6, on admission was 5.63, Cr today 8.0 - Hx of SEAN in August 2023 after diclofenac use, recent NSAID use (diclofenac 50mg BID x 4 weeks and aspirin 81mg BID) - FENa 7.7% indicating intrinsic SEAN / ATN - based on pt's history, suspect her chronic poor appetite caused some level of dehydration and that NSAID use of diclofenac twice daily for 4 weeks then caused further injury and pt now has an ATN - Nephrology consultation; no acute dialysis indication at this time, continue to encourage intake and hydrate - rate of increase of Cr seems to be improving #HAGMA, stable - initial pH 7.06, improved with IV sodium bicarb - sodium bicarb transitioned to NSS per nephro - AG today 17 - suspect the lack of further improvement is ATN with worsening kidney function vs poor po intake causing starvation ketosis, if hyperchloremic would switch to D5 solution #Nausea/vomiting #Poor appetite with early satiety - notes chronic issue with poor appetite for maybe the last few months, worsened after knee surgery in November with acute worsening 01/29 - pt states that she just feels full after a few bites of food - was on ozempic but only for 2 doses, last dose 12/06 - pt may benefit from further GI workup once discharged from the hospital for question or gastroparesis or other GI pathology as the cause of her poor intake secondary to early satiety - acutely, her nausea/vomiting most likely secondary to her acute renal failure/uremia #Type 2 diabetes mellitus: - Last A1c at 5.3% 01/31 - Hold metformin, Will defer insulin in setting of SEAN with reassuring last A1c #GERD without esophagitis - Hold home po prilosec while po intake is poor, - protonix 40 mg BID IV and famotidine 20 mg daily started here - tums added to regime per nephro #Status post total right knee replacement - S/p right TKR on 12/13/23 - Continue oxycodone 5mg p.o. q6h as needed for pain VTE PPx: SCDs (Cristino VTE predictive score of 3), encouraged ambulation as tolerated Admission and Anticipated Discharge Date Admission Date: January 31, 2024 Supervising Physician Co-Signing Physician Notes Patient seen and examined, chart reviewed, case discussed with Dr. Marquez and I agree with the assessment and plan as above except as otherwise noted Labs and images reviewed 63-year-old female presents with ATN suspected from poor p.o. intake and NSAID use. Creatinine still has not peaked however very much less rapid rise, potassium remains normal, and she is not oliguric. Reviewed with nephrology, started on oral bicarbonate. No indication for dialysis at this time, continue monitoring serial BMPs. Appreciate recommendations. At bedside she is euthymic, lungs are clear, no evidence of volume overload/LE edema. Agree with assessment and management as above Subjective Today, pt states she feels about the same as yesterday for the most part. She states that she does feel like when she sleeps it is more restful now than it was before but continues to have minimal with her diet and continues to feel overall tired and weak. No chest pain or SOB today. No nausea this morning but intermittent nausea noted. No further questions or complaints at this point. Would like to avoid dialysis at all costs but is agreeable to dialysis if it is absolutely needed. Review of Systems Review of Systems: Per HPI. Physical Exam Physical Exam: General:Alert and oriented, no acute distress, HEENT: Normocephalic, moist oral mucosa, Cardio: Regular rate and rhythm, no murmur, Resp:Lungs clear to auscultation b/l, no wheezes or rhonchi, GI: Soft and nontender, nondistended, bowel sounds active Skin: Warm, pink, dry, Results & Data Results & Data Vital Signs (Past 12 Hours) Vital Signs Temp Pulse Pulse Resp BP Pulse Ox O2 Del Method 02/05/24 03:02 36.7 C 106 H 17 129/82 92 Room Air 02/05/24 00:27 103 H 02/04/24 22:33 36.9 C 105 H 18 151/93 H 94 Room Air 02/04/24 19:23 36.8 C 100 H 18 152/98 H 94 Room Air Resident Activity Tracking Resident Involvement: Resident Care Provided Care Provided: Adult Hospital Medicine (7) Nausea & vomiting Vomiting type: unspecified Qualified Code(s): R11.2 - Nausea with vomiting, unspecified (8) Acute renal failure Acute renal failure type: unspecified Qualified Code(s): N17.9 - Acute kidney failure, unspecified
[2024-02-05 07:56] LABS: Hematocrit (blood only) 37.9 % (37.0-47.0); Hemoglobin 12.5 g/dl (12.0-16.0); Mean Corpuscular Hemoglobin 27.5 pg (25.0-34.0); Mean Corpuscular Volume 83.5 fL (80.0-100.0); Platelet Count 254 K/uL (130-400); RDW Coefficient of Variation 13.7 % (11.5-14.5); RDW Standard Deviation 41.7 fL (36.4-46.3); Red Blood Count 4.54 M/uL (4.20-5.40); White Blood Count 10.12 K/ul (4.8-10.8)
[2024-02-05 08:11] LABS: BUN Creatinine Ratio 7.1 (10-20); Calcium 7.4 mg/dl (8.6-10.3); Creatinine Clr Calc Pharmacy 7.1 ml/min; Est GFR (African American) 5.7 ml/min; Est GFR (Non-African American) 4.9 ml/min; Phosphorus 7.6 mg/dl (2.5-4.9); Potassium 4.4 mmol/L (3.5-5.1)
--- NOTE | 2024-02-05 11:08 | Nephrology Progress Note ---
Date of Service February 05, 2024 Assessment & Plan (1) Acute renal failure: (2) Anemia: (3) Nausea & vomiting: (4) High anion gap metabolic acidosis: (5) Type 2 diabetes mellitus without complication, without long-term current use of insulin: Plan 63-year-old female with baseline normal renal function, baseline creatinine 0.6- 0.7, admitted with acute kidney injury, hyperkalemia and metabolic acidosis with history of poor p.o. intake for weeks and nausea and vomiting for 2 days. Blood pressure was stable but clinically volume depleted. Urinalysis with low grade proteinuria but no hematuria. CT A/P with no postrenal obstruction, no concern for renal artery or venous thrombosis. SEAN most likely secondary to ATN with volume depletion and poor p.o. intake for days to weeks. Serology pending. Kidney function has been worsening rapidly over last few days but since yesterday rise of creatinine seems to have slowed down, creatinine 8 and BUN 57, potassium normal. Hemoglobin improved to 12.2, Iron study, B 12, folate normal. Urine output improved. Blood pressure better, after started on amlodipine 5 mg daily on 02/04/2024. --start on sodium bicarbonate 650 mg twice a day, continue on Tums 1 tab TIDM --Continue normal saline for now as poor po intake, encourage p.o. intake, monitor intake and output and aim for net positive. If p.o. intake improved, will discontinue IV fluid --Amlodipine 5 mg po daily -- Avoid all nephrotoxic medications including NSAIDs. -- No indication for dialysis at this time, cautiously optimistic as rise of creatinine seems to have slowed down and hopefully creatinine will start to improve soon. No indication for dialysis at this time, we discussed possible role of temporary dialysis if kidney function continues to worsen and or develop electrolyte abnormality, volume overload or significant uremic symptoms. Will continue to monitor closely over the weekend and assess for any need for dialysis. Considering the degree of renal impairment, even if kidney function starts to stabilize, it may take time to see significant improvement. Admission and Anticipated Discharge Date Admission Date: January 31, 2024 Valerie Reobllar was seen and evaluated this morning. Overall she feels about the same, did not have any significant dry heaving or vomiting this morning. No diarrhea or abdominal pain. No fever or chills. No shortness of breath or chest pain. Blood pressure slightly improved, on amlodipine 5 mg daily. Urine output improved to >1200 mL over last 24 hours. Rise of creatinine seems to have slowed down, creatinine 8.0 and BUN 57, bicarb slightly dropped to 18 again, K normal. Hemoglobin improved to >12. Review of Systems Review of Systems: Detailed review of system was done and pertinent positives and negatives are mentioned above. Physical Exam Constitutional: WD/WN, vitals as above no acute distress Respiratory: Auscultation: lungs clear to auscultation bilaterally Cardiovascular: RRR, no murmur, no edema Musculoskeletal: Extremities: extremities normal to inspection Neurologic: no focal motor deficits Psychiatric: Orientation: alert and oriented x 3 Affect: euthymic affect Results & Data Vital Signs (Past 12 Hours) Vital Signs Temp Pulse Pulse Resp BP Pulse Ox O2 Del Method 02/05/24 10:53 116 H 02/05/24 07:10 36.6 C 99 H 17 148/99 H 94 Room Air 02/05/24 03:02 36.7 C 106 H 17 129/82 92 Room Air 02/05/24 00:27 103 H PG Care Time/CCT Total # of Minutes Spent Total Time Spent with Patient: Total time spent is greater than 50% in coordination of care (as documented) at patient's floor/unit and/or counseling patient: Coding Level of Care Code 17966 SUB INP/OBS CARE 3/50MIN Diagnoses Acute renal failure N17.9 Acute renal failure type: unspecified Anemia D64.9 Nausea & vomiting R11.2 Vomiting type: unspecified High anion gap metabolic acidosis E87.29 Type 2 diabetes mellitus without complication, without long-term current use of insulin E11.9 (1) Acute renal failure Acute renal failure type: unspecified Qualified Code(s): N17.9 - Acute kidney failure, unspecified (3) Nausea & vomiting Vomiting type: unspecified Qualified Code(s): R11.2 - Nausea with vomiting, unspecified
[2024-02-05] MEDS: SODIUM BICARBONATE 650 MG TAB PO SCH (11:24)
--- NOTE | 2024-02-05 12:01 | Billing Data ---
Date of Service February 05, 2024 Coding Level of Care Code 01824 SUB INP/OBS CARE MIN
[2024-02-05] MEDS: ONDANSETRON INJ 2 MG/ML 2 ML VIAL IV PRN (15:35)
[2024-02-05] MEDS: PROCHLORPERAZINE MALEATE 5 MG TAB PO ONE (15:37)
--- NOTE | 2024-02-06 07:23 | Hospitalist Progress Note ---
Date of Service February 06, 2024 Assessment & Plan (1) Nausea & vomiting: (2) GERD without esophagitis: (3) High anion gap metabolic acidosis: (4) Acute renal failure: (5) Tachycardia: (6) Type 2 diabetes mellitus: (7) Status post total right knee replacement: Plan Keturah Hernandez is a 63 year old female with PMH of T2DM presenting with acute renal injury. #Nausea/vomiting #Poor appetite with early satiety - continue PPI and H2 kathy - add carafate 1 g PO QID - give lorazepam 0.5 mg IV - acutely, her nausea/vomiting most likely secondary to her acute renal failure/uremia - pt may benefit from further GI workup once discharged from the hospital for question #Acute renal failure, ATN - Cr baseline around 0.6, increasing since admission, now stabilized at 7.99 - Nephrology consultation; no acute dialysis indication at this time, continue to encourage intake and hydrate #HAGMA - initial pH 7.06, improved to 7.33 with IV sodium bicarb - AG today 20 - suspect the lack of further improvement is ATN with worsening kidney function vs poor po intake causing starvation ketosis, if hyperchloremic would switch to D5 solution #Tachycardia - EKG done to eval tachycardia. Normal sinus rhythm, no significant change from previous (01/30) #Type 2 diabetes mellitus: - Last A1c at 5.3% 01/31 - Hold metformin, Will defer insulin in setting of SEAN with reassuring last A1c #GERD without esophagitis - Hold home prilosec while PO intake is poor, - protonix 40 mg BID IV and famotidine 20 mg BID here - tums added to regime per nephro #Status post total right knee replacement - S/p right TKR on 12/13/23 - Continue oxycodone 5 mg p.o. q6h as needed for pain VTE PPx: SCDs (Cristino VTE predictive score of 3), encouraged ambulation as tolerated Admission and Anticipated Discharge Date Admission Date: January 31, 2024 Supervising Physician Co-Signing Physician Notes Attending attestation Pt seen and examined in concert with Dr. Ugalde. In agreement with the documented findings as noted in the resident documentation with any exceptions or additions as noted here. Resolution of emesis following administration of IV ondansetron and now resting comfortably. Extensive conversation re: interventions and goals of care including recommendation to keep IV access. On examination, S1/S2 nl RRR no MCG. CTAB. Abd NT/ND BS+ve Nausea/vomiting, ongoing - reviewed use and indications of lorazepam and will keep on med list as second line intervention. Continue IV ondansetron q4PRN, offered to schedule x 24 hours and patient request PRN. Increase famotidine as noted. HAGMA in the setting of ARF, ATN - nephrology consult - trend BMP daily and monitor, ABG pending Else see resident documentation as noted. Subjective Today, pt reports feeling very nauseous, with multiple episodes of vomiting over the past day that produce small volumes of brownish mucus. She was unable to take any of her PO diet and says even small sips of water make her feel like she will be sick. She reports overall weakness and fatigue, as well as difficulty concentrating. She denies any pain or new complaints. Physical Exam 2 Physical Exam: General:Alert and oriented, was retching during interview HEENT: Normocephalic Cardio: Regular rhythm, slightly elevated rate, no murmur GI: Soft and nontender, nondistended, bowel sounds active Skin: Warm, pink, dry Results & Data Results & Data Vital Signs (Past 12 Hours) Vital Signs Temp Pulse Pulse Resp BP Pulse Ox O2 Del Method 02/06/24 16:30 107 H 02/06/24 14:25 36.6 C 107 H 18 147/89 H 91 Room Air 02/06/24 11:16 36.7 C 109 H 18 144/96 H 91 Room Air 02/06/24 08:00 Room Air 02/06/24 07:12 36.7 C 114 H 17 152/98 H 91 Room Air 02/06/24 03:10 36.8 C 108 H 18 150/97 H 94 Room Air 02/06/24 01:10 98 H 02/05/24 22:44 36.8 C 104 H 18 152/97 H 94 Room Air 02/05/24 19:23 36.5 C 103 H 18 154/96 H 94 Room Air Intake and Output 02/06/24 02/06/24 02/06/24 06:59 14:59 22:59 Intake Total 1150 / 2690 1368 / 1368 Output Total 300 / 1100 550 / 650 100 / 650 Balance 850 / 1590 818 / 718 -100 / 718 Intake: IV 999 888 / 888 Sodium Chloride 0.9% 1,000 ml @ 999 888 / 888 80 mls/hr IV .[id number] [facility] Rx#: [id number] Oral 150 / 710 480 / 480 Output: Urine 50 / 50 Urine Amount (Catheter) 300 / 1100 550 / 600 50 / 600 Copeland/Indwelling 300 / 1100 550 / 600 50 / 600 Other: Weight 71.1 kg Laboratory Results 02/05/24 07:19 02/06/24 07:33 ECG Indication: tachycardia Rate (beats per minute): 107 Rhythm: normal sinus Comparison ECG Date: from (01/31/24) Change: no significant change Resident Activity Tracking Resident Involvement: Resident Care Provided Care Provided: Adult Hospital Medicine (1) Nausea & vomiting Vomiting type: unspecified Qualified Code(s): R11.2 - Nausea with vomiting, unspecified (4) Acute renal failure Acute renal failure type: unspecified Qualified Code(s): N17.9 - Acute kidney failure, unspecified
[2024-02-06 09:15] LABS: Albumin Level 3.2 gm/dl (3.4-5.0); Calcium 7.9 mg/dl (8.6-10.3); Potassium 4.3 mmol/L (3.5-5.1)
[2024-02-06 09:42] LABS: BUN Creatinine Ratio 7.5 (10-20); Creatinine Clr Calc Pharmacy 7.1 ml/min; Est GFR (African American) 5.7 ml/min; Est GFR (Non-African American) 4.9 ml/min; Phosphorus 7.8 mg/dl (2.5-4.9)
[2024-02-06] MEDS ORDERED: LORazepam 0.5 MG in SYRINGE 0.25 ML IV PRN (11:59)
[2024-02-06] MEDS ORDERED: FAMOTIDINE 20MG IV PUSH 20 MG/5 ML SYR IV SCH (12:00)
[2024-02-06] MEDS: LORazepam 0.5 MG in SYRINGE 0.25 ML IV STA (12:14)
[2024-02-06] MEDS: SUCRALFATE 1 GM TAB PO SCH (12:45)
--- NOTE | 2024-02-06 12:54 | Nephrology Progress Note ---
Date of Service February 06, 2024 Assessment & Plan (1) Acute renal failure: Plan: Non-oliguric. Electrolytes normal. Volume status acceptable. Unfortunately, Keturah continues to endorse symptoms of uremia. She has findings which suggest SEAN has been ongoing or some time. She expressed understanding. No emergent indications for dialysis at this time. Close prospective monitoring will be provided. Serologic testing for possible GN pending. Low suspicion. Medications are appropriate for kidney function. Baseline creatinine <1 mg/dL. Copeland may be removed. NSS infusion stopped. Continue to encourage positive fluid balance. Document strict I/O's. Repeat metabolic profile tomorrow AM. Medications are appropriate for kidney function. Rosuvastatin held. (2) High anion gap metabolic acidosis: Plan: Metformin discontinued. Lactate normalized. Oral NaHCO3 is being provided. Keturah would like to continue to defer HD at this time. (3) Nausea & vomiting: Plan: PRN antiemetics as ordered. Keturah endorsed ongoing symptoms of dizziness prior to admission. (4) Anemia: Plan: Stable. No indication for ANDREA therapy at this time. (5) Type 2 diabetes mellitus without complication, without long-term current use of insulin: Plan: Metformin held. Admission and Anticipated Discharge Date Admission Date: January 31, 2024 Subjective No acute events overnight. Keturah was seen and evaluated with her at the bedside this AM. Appetite remains poor. She continues to endorse nausea. She vomited a small amount this AM. No abdominal pain. She denies chest pains or palpitations. She denies shortness of breath. Copeland is draining clear yellow urine. Non-oliguric. No fevers or chills. Flushing reported. Denies pain. Some mild pedal edema reported. Review of Systems Review of Systems: All systems reviewed & are unremarkable except as noted in HPI & below Physical Exam Constitutional: well developed; no acute distress Eyes: no scleral abnormality and no corneal abnormality ENMT: Mouth: no oral mucosal abnormality and oral mucous membranes not dry Neck: normal visual inspection and trachea midline Respiratory: normal respiratory effort Auscultation: lungs clear to auscultation bilaterally Cardiovascular: Rate/Rhythm: + tachycardic Heart Sounds: normal S1 and normal S2 Extremities: + pedal edema Musculoskeletal: Extremities: no cyanosis and no clubbing Skin: normal turgor; no lesions Neurologic: Motor/Sensory: no tremor and no asterixis Psychiatric: Orientation: alert and oriented x 3 Results & Data Vital Signs (Past 12 Hours) Vital Signs Temp Pulse Pulse Resp BP Pulse Ox O2 Del Method 02/06/24 11:16 36.7 C 109 H 18 144/96 H 91 Room Air 02/06/24 08:00 Room Air 02/06/24 07:12 36.7 C 114 H 17 152/98 H 91 Room Air 02/06/24 03:10 36.8 C 108 H 18 150/97 H 94 Room Air 02/06/24 01:10 98 H Laboratory Results Laboratory Results - last 24 hr 02/05/24 02/05/24 02/06/24 16:18 20:07 07:07 Sodium Potassium Chloride Carbon Dioxide Anion Gap BUN Creatinine Est Cr Clr Drug Dosing Est GFR ( Amer) Est GFR (Non-Af Amer) BUN/Creatinine Ratio Glucose POC Glucose 110 H 106 H 102 H Calcium Phosphorus Albumin 02/06/24 02/06/24 07:33 11:03 Sodium 137 Potassium 4.3 Chloride 101 Carbon Dioxide 16 L Anion Gap 20 H BUN 60 H Creatinine 7.99 H* Est Cr Clr Drug Dosing 7.1 Est GFR ( Amer) 5.7 Est GFR (Non-Af Amer) 4.9 BUN/Creatinine Ratio 7.5 L Glucose 97 POC Glucose 115 H Calcium 7.9 L Phosphorus 7.8 H Albumin 3.2 L PG Care Time/CCT Total # of Minutes Spent Total Time Spent with Patient: Total time spent is greater than 50% in coordination of care (as documented) at patient's floor/unit and/or counseling patient: Coding Level of Care Code 06657 SUB INP/OBS CARE 3/50MIN Diagnoses Acute renal failure N17.9 Acute renal failure type: unspecified High anion gap metabolic acidosis E87.29 Nausea & vomiting R11.2 Vomiting type: unspecified Anemia D64.9 Type 2 diabetes mellitus without complication, without long-term current use of insulin E11.9 (1) Acute renal failure Acute renal failure type: unspecified Qualified Code(s): N17.9 - Acute kidney failure, unspecified (3) Nausea & vomiting Vomiting type: unspecified Qualified Code(s): R11.2 - Nausea with vomiting, u nspecified
[2024-02-06 14:24] LABS: Base Excess ABG -10.7 mEq/L (-9-1.8); HCO3 ABG 14 mmol/L (19-24); Oxygen Saturation ABG 94.1 % (90-95); PCO2 ABG 26 mmHg (35-46); PO2 ABG 68 mmHg (80-95); pH ABG 7.33 (7.35-7.45)
[2024-02-06 14:26] LABS: Allen Test Pos (Pos)
--- NOTE | 2024-02-06 16:10 | Electrocardiogram Report ---
Test Reason : Blood Pressure : / mmHG Vent. Rate : 107 BPM Atrial Rate : 107 BPM P-R Int : 136 ms QRS Dur : 066 ms QT Int : 374 ms P-R-T Axes : 046 056 061 degrees QTc Int : 499 ms Sinus tachycardia Low voltage QRS Borderline ECG When compared with ECG of 31-JAN-2024 18:35, No significant change was found Confirmed by Michael Long ([id number]) on 02/06/2024 4:10:03 PM Referred By: REFERRED SELF Confirmed By:Mohinder Long
[2024-02-06 21:05] LABS: Basophils # (auto) 0.05 K/uL (0.00-0.20); Basophils % (auto) 0.3 %; Eosinophils # (auto) 0.11 K/uL (0.00-0.50); Eosinophils % (auto) 0.7 %; Hematocrit (blood only) 36.7 % (37.0-47.0); Hemoglobin 12.2 g/dl (12.0-16.0); Immature Granulocytes # (auto) 0.12 K/uL (0.01-0.20); Immature Granulocytes % (auto) 0.8 %; Lymphocytes # (auto) 1.28 K/uL (1.20-3.40); Lymphocytes % (auto) 8.4 %; Mean Corpuscular Hemoglobin 27.6 pg (25.0-34.0); Mean Corpuscular Hgb Conc 33.2 g/dL (32.0-36.0); Monocytes # (auto) 0.83 K/uL (0.11-0.59); Monocytes % (auto) 5.4 %; Neutrophils # (auto) 12.88 K/uL (1.40-6.50); Neutrophils % (auto) 84.4 %; Platelet Count 294 K/uL (130-400); RDW Coefficient of Variation 14.1 % (11.5-14.5); RDW Standard Deviation 42.6 fL (36.4-46.3); Red Blood Count 4.42 M/uL (4.20-5.40); White Blood Count 15.27 K/ul (4.8-10.8)
[2024-02-06 21:26] LABS: Albumin Globulin Ratio 1.1 (0.9-2); Albumin Level 3.3 gm/dl (3.4-5.0); BUN Creatinine Ratio 7.3 (10-20); Bilirubin,Total 0.7 mg/dl (0.2-1.0); Calcium 8.6 mg/dl (8.6-10.3); Creatinine Clr Calc Pharmacy 6.8 ml/min; Est GFR (African American) 5.4 ml/min; Est GFR (Non-African American) 4.6 ml/min; Globulin 2.9 gm/dl (2.5-4.0); Potassium 4.3 mmol/L (3.5-5.1); Total Protein 6.2 gm/dl (6.0-8.3)
[2024-02-07] MEDS: cefTRIAXone SODIUM 1,000 MG/50 ML BAG IV SCH (00:44)
[2024-02-07 03:49] LABS: Appearance Urine Clear (Clear); Bacteria Urine Automated None Seen (None Seen); Bilirubin Urine Negative (Negative); Blood Urine 1+ (Negative); Cast Urine Automated 0-2 /lpf (0-2); Color Urine Yellow; Epithelial Cell Urine Auto 0-2 /hpf (0-2); Glucose Urine UA Trace (Negative); Ketones Urine 1+ (Negative); Leukocyte Esterase Urine Trace (Negative); Nitrite Urine Negative (Negative); Protein Urine 2+ (Negative); Specific Gravity Urine 1.009 (1.000-1.030); Urobilinogen Urine Negative (Negative); WBC Urine Automated 0-5 /hpf (0-5)
[2024-02-07 06:53] LABS: Albumin 2.5 g/dL (3.8-4.8); Alpha 1 Globulin 0.4 g/dL (0.2-0.3); Alpha 2 Globulin 0.7 g/dL (0.5-0.9); Beta-1-Globulin 0.4 g/dL (0.4-0.6); Beta-2-Globulin 0.3 g/dL (0.2-0.5); Gamma Globulin 0.6 g/dL (0.8-1.7); Monoclonal Protein Band 1 DNR g/dL (NONE DETECTED); Monoclonal Protein Band 2 DNR g/dL (NONE DETECTED); Monoclonal Protein Band 3 DNR g/dL (NONE DETECTED); Total Protein 4.8 g/dL (6.1-8.1)
--- NOTE | 2024-02-07 07:45 | Hospitalist Progress Note ---
Date of Service February 07, 2024 Assessment & Plan (1) Nausea & vomiting: (2) GERD without esophagitis: (3) High anion gap metabolic acidosis: (4) Acute renal failure: (5) Tachycardia: (6) Type 2 diabetes mellitus: (7) Status post total right knee replacement: Plan Keturah Hernandez is a 63 year old female with PMH of T2DM and TKR, presenting with acute renal injury. #Nausea/vomiting #Poor appetite with early satiety - continue PPI and H2 kathy - add carafate 1 g PO QID - give lorazepam 0.5 mg IV - acutely, her nausea/vomiting most likely secondary to her acute renal failure/uremia - pt may benefit from further GI workup once discharged from the hospital for question - concern for #Acute renal failure, ATN - Cr baseline around 0.6, increasing since admission, 8.56 today - coughlin removed and IVF discontinued 02/05 PM - Nephrology consulted: continue to encourage intake and hydrate; dialysis recc'd; plan to transfer for renal biopsy to identify underlying causes; vasc surg contacted to place HD permacath if not transferred #HAGMA - initial pH 7.06, improved to 7.33 with IV sodium bicarb - sodium bicarb 1300 mg PO BID - AG today 21 - suspect the lack of further improvement is ATN with worsening kidney function vs poor po intake causing starvation ketosis, if hyperchloremic would switch to D5 solution Leukocytosis - WBC count increased to 15.27 - abnormal UA, concern for UTI. UCx pending. - pt has remained afebrile - started IV Rocephin 1000 mg q24h Peripheral edema - CXR showed mild pulm edema, trace R and small L pleural effusion, and patchy L basilar densities #Tachycardia - EKG done to eval tachycardia. Normal sinus rhythm, no significant change from previous (01/30) #Type 2 diabetes mellitus: - Last A1c at 5.3% 01/31 - Hold metformin, Will defer insulin in setting of SEAN with reassuring last A1c #GERD without esophagitis - Hold home prilosec while PO intake is poor, - protonix 40 mg BID IV and famotidine 20 mg BID here - tums added to regime per nephro #Status post total right knee replacement - S/p right TKR on 12/13/23 - Continue oxycodone 5 mg p.o. q6h as needed for pain VTE PPx: SCDs (Cristino VTE predictive score of 3), encouraged ambulation as tolerated Admission and Anticipated Discharge Date Admission Date: January 31, 2024 Subjective Pt reports continued nausea and vomited small volumes this AM. She has been trying to drink more water and eating "a bit" of each portion of her meal. She denies pain, SOB and endorses continued fatigue. During our discussion, she acknowledged stopping treatments too soon and not giving herself adequate time to recover. She seemed amenable to following more of her care teams' recommendations and stated that we should feel comfortable "saying no to more of [her] requests" that contradict our optimal care plan. We also discussed the origin of her difficulty eating, which she attributed to increased workload and stress at her job since September in addition to the pain and feeling generally unwell after TKR November. She states she has had significant (~20 lbs) intentional weight loss in the past year. Review of Systems 2 Review of Systems: Per HPI. Physical Exam 2 Physical Exam: General:AOx3, NAD HEENT: NCAT CV: RRR, no m/r/g Resp: CTAB GI: soft, nt/nd, + BS ??: mild edema b/l hands and feet Skin: Warm, pink, dry Psych: speech slow but organized and coherent Results & Data Results & Data Vital Signs (Past 12 Hours) Vital Signs Temp Pulse Pulse Resp BP BP Pulse Ox 02/07/24 07:42 36.6 C 120 H 18 162/107 H 92 02/07/24 07:30 112 H 02/07/24 02:42 36.5 C 111 H 18 151/96 H 94 02/06/24 22:00 37.1 C 110 H 16 157/101 H 161/97 H 93 02/06/24 21:52 110 H 02/06/24 19:30 36.5 C 107 H 18 159/106 H 157/101 H 94 02/06/24 16:30 107 H 02/06/24 14:25 36.6 C 107 H 18 147/89 H 91 02/06/24 11:16 36.7 C 109 H 18 144/96 H 91 Intake and Output 02/06/24 02/07/24 02/07/24 22:59 06:59 14:59 Intake Total 170 / 1538 Output Total 350 / 1050 150 / 1050 Balance -350 / 488 20 / 488 Intake: IV 50 / 938 cefTRIAXone SODIUM 1,000 mg In 50 / 50 50 ml @ 100 mls/hr IV Q24H [facility] Rx#:[id number] Oral 120 / 600 Output: Urine 300 / 450 150 / 450 Urine Amount (Catheter) 50 / 600 Coughlin/Indwelling 50 / 600 Other: Weight 71.4 kg Laboratory Results 02/06/24 20:46 02/07/24 07:52 Lactate 2.2 HH (0.4-2.0 mmol/L) Diagnostic Findings Chest X-Ray 02/06/24 19:10 XR chest 1V portable HISTORY: fluid overload COMPARISON: Chest 01/31/2024. FINDINGS: No pneumothorax. Trace right and small left pleural effusions are new compared the prior study. The heart is mildly enlarged. Left basilar densities are noted. Interval interstitial and vascular thickening consistent with mild pulmonary edema. No acute fractures IMPRESSION: 1. Interval development of mild pulmonary edema with a trace right and small left pleural effusion. 2. Patchy left basilar densities are also new compared to the prior study. ACT 112: Negative or not required by law. Electronically signed by: Juan Hobbs M.D. 02/07/2024 7:57 AM (1) Nausea & vomiting Vomiting type: unspecified Qualified Code(s): R11.2 - Nausea with vomiting, unspecified (4) Acute renal failure Acute renal failure type: unspecified Qualified Code(s): N17.9 - Acute kidney failure, unspecified
--- NOTE | 2024-02-07 07:58 | XRay Report ---
XR chest 1V portable HISTORY: fluid overload COMPARISON: Chest 01/31/2024. FINDINGS: No pneumothorax. Trace right and small left pleural effusions are new compared the prior st udy. The heart is mildly enlarged. Left basilar densities are noted. Interval interstitial and vascul ar thickening consistent with mild pulmonary edema. No acute fractures IMPRESSION: 1. Interval development of mild pulmonary edema with a trace right and small left pleural effusion. 2. Patchy left basilar densities are also new compared to the prior study. ACT 112: Negative or not required by law. Electronically signed by: Juan Hobbs M.D. 02/07/2024 7:57 AM
[2024-02-07 08:18] LABS: Creatinine Ur 24 mg/dL (20-275); Protein, Urine Random 95 mg/dL (5-24); Ur Protein/Creat Ratio mg/g 3958 mg/g creat (24-184); Urine Abnormal Protein Band 1 DNR mg/dL (NONE DETECTED); Urine Abnormal Protein Band 2 DNR mg/dL (NONE DETECTED); Urine Abnormal Protein Band 3 DNR mg/dL (NONE DETECTED); Urine Protein/Creatinine Ratio 3.958 (0.024-0.184)
[2024-02-07 08:48] LABS: BUN Creatinine Ratio 7.4 (10-20); Calcium 8.3 mg/dl (8.6-10.3); Creatinine Clr Calc Pharmacy 6.6 ml/min; Est GFR (African American) 5.2 ml/min; Est GFR (Non-African American) 4.5 ml/min; Potassium 4.2 mmol/L (3.5-5.1)
[2024-02-07] MEDS: PLASMA-LYTE A 1,000 ML IV SCH (10:33)
--- NOTE | 2024-02-07 12:09 | Nephrology Progress Note ---
Date of Service February 07, 2024 Assessment & Plan (1) Acute renal failure: Plan: Non-oliguric. Electrolytes normal. Volume status acceptable. Unfortunately, Keturah has uremic symptoms. Potential indications for dialysis were discussed with Keturah and her this morning. She remains very resistant to the idea of starting HD. However, she also understands the concerns. Persistent metabolic acidosis noted with lactate slightly increased. Keturah states that she had not taken metformin for at least 2 weeks prior to admission. She stopped taking any NSAIDS in early December. There is no clear etiology for SEAN based on clinical history. Kidney biopsy has been advised for definitive diagnosis. I have discussed with the transfer center and we are working to see what can be coordinated through [facility]. Ideally, I would like to expedite diagnosis so treatment can be started. Keturah is not stable for discharge. Emergent dialysis is not required today but she was receptive to vascular surgery consultation and the idea of pursuing tunneled HD catheter placement if there is no improvement in the next 24 hours. Serologic testing for possible GN pending. Urine continues to demonstrate small amount of proteinuria and microscopic hematuria. I cannot exclude acute GN or AIN. Medications are appropriate for kidney function. Baseline creatinine <1 mg/dL. IVF will be restarted to encourage continued slightly positive fluid balance. Additional PO NaHCO3 ordered. Document strict I/O's. Repeat metabolic profile tomorrow AM. Medications are appropriate for kidney function. Rosuvastatin held. (2) High anion gap metabolic acidosis: Plan: Metformin discontinued. Lactate slightly increased yesterday - etiology unclear. Oral NaHCO3 is being provided. (3) Anemia: Plan: Stable. No indication for ANDREA therapy at this time. (4) Type 2 diabetes mellitus without complication, without long-term current use of insulin: Plan: Metformin held. Admission and Anticipated Discharge Date Admission Date: January 31, 2024 Subjective No acute events overnight. Persistent confusion and weakness noted. Ambulatory dysfunction noted associated with lower extremity weakness and poor balance. Appetite remains poor. Nausea persists. Keturah denies lightheadedness or dizziness. No shortness of breath. No chest pains or palpitations. Non-oliguric. Review of Systems Review of Systems: All systems reviewed & are unremarkable except as noted in HPI & below Physical Exam Constitutional: well developed; no acute distress Eyes: no scleral abnormality and no corneal abnormality ENMT: Mouth: no oral mucosal abnormality and oral mucous membranes not dry Neck: normal visual inspection and trachea midline Respiratory: normal respiratory effort Auscultation: lungs clear to auscultation bilaterally Cardiovascular: Rate/Rhythm: + tachycardic Heart Sounds: normal S1 and normal S2 Extremities: + pedal edema Musculoskeletal: Extremities: no cyanosis and no clubbing Skin: normal turgor; no lesions Neurologic: Motor/Sensory: no tremor and no asterixis Psychiatric: Orientation: alert and oriented x 3 Results & Data Vital Signs (Past 12 Hours) Vital Signs Temp Pulse Pulse Resp BP BP Pulse Ox 02/07/24 11:24 36.7 C 119 H 18 154/98 H 92 02/07/24 07:42 36.6 C 120 H 18 162/107 H 92 02/07/24 07:30 112 H 02/07/24 02:42 36.5 C 111 H 18 151/96 H 94 O2 Del Method 02/07/24 11:24 Room Air 02/07/24 07:42 Room Air 02/07/24 07:30 02/07/24 02:42 Room Air Laboratory Results Laboratory Results - last 24 hr 02/02/24 02/03/24 02/06/24 12:15 05:25 14:13 WBC RBC Hgb Hct MCV MCH MCHC RDW Std Deviation RDW Coeff of Simon Plt Count MPV Immature Gran % (Auto) Neut % (Auto) Lymph % (Auto) [place] % (Auto) Eos % (Auto) Baso % (Auto) Neut # (Auto) Lymph # (Auto) [place] # (Auto) Eos # (Auto) Baso # (Auto) Immature Gran # (Auto) ABG pH 7.33 L ABG pCO2 26 L ABG pO2 68 L ABG HCO3 14 L ABG O2 Saturation 94.1 ABG Base Excess -10.7 L Eben Test Pos Oxygen Given ROOM AIR Sodium Potassium Chloride Carbon Dioxide Anion Gap BUN Creatinine Est Cr Clr Drug Dosing Est GFR ( Amer) Est GFR (Non-Af Amer) BUN/Creatinine Ratio Glucose POC Glucose Lactate Calcium Total Bilirubin AST ALT Alkaline Phosphatase Ammonia Total Protein Total Protein (PEP) 4.8 L Albumin Albumin (PEP) 2.5 L Globulin Albumin/Globulin Ratio Nflez-4-Cqfiefdns 0.4 H Eelwy-1-Ohxmtxtcb 0.7 Txfe-6-Haupcmlr 0.4 Ybup-8-Zcyjsxah 0.3 Gamma Globulins 0.6 L Monoclonal Peak 3 DNR Ser Monoclonl Protein DNR Ser Monoclonal Prot 2 DNR PEP Interpretation SEE NOTE Urine Color Urine Appearance Urine pH Ur Specific [place] Urine Protein Urine Glucose (UA) Urine Ketones Urine Blood Urine Nitrite Urine Bilirubin Urine Urobilinogen Ur Leukocyte Esterase Urine WBC (Auto) Urine RBC (Auto) U Hyaline Cast (Auto) U Epithel Cells (Auto) Urine Bacteria (Auto) U Random Total Protein 95 H Ur Creatinine mg/dL 24 Protein/Creatinin Ratio 3.958 H Urine Albumin (%) 42 U Mpfeu-3-Vsqvbjnt (%) 10 U Bfcup-3-Wnylgzrs (%) 19 U Beta Globulin (%) 17 U Gamma Globulin (%) 12 U Abnormal Prot Band 1 DNR U Abnormal Prot Band 2 DNR U Abnormal Prot Band 3 DNR Urine PEP Interpret SEE NOTE 02/06/24 02/06/24 02/06/24 16:34 20:06 20:46 WBC 15.27 H RBC 4.42 Hgb 12.2 Hct 36.7 L MCV 83.0 MCH 27.6 MCHC 33.2 RDW Std Deviation 42.6 RDW Coeff of Simon 14.1 Plt Count 294 MPV 10.0 Immature Gran % (Auto) 0.8 Neut % (Auto) 84.4 Lymph % (Auto) 8.4 [place] % (Auto) 5.4 Eos % (Auto) 0.7 Baso % (Auto) 0.3 Neut # (Auto) 12.88 H Lymph # (Auto) 1.28 [place] # (Auto) 0.83 H Eos # (Auto) 0.11 Baso # (Auto) 0.05 Immature Gran # (Auto) 0.12 ABG pH ABG pCO2 ABG pO2 ABG HCO3 ABG O2 Saturation ABG Base Excess Eben Test Oxygen Given Sodium 135 L Potassium 4.3 Chloride 100 Carbon Dioxide 14 L Anion Gap 21 H BUN 61 H Creatinine 8.35 H* D Est Cr Clr Drug Dosing 6.8 Est GFR ( Amer) 5.4 Est GFR (Non-Af Amer) 4.6 BUN/Creatinine Ratio 7.3 L Glucose 112 H POC Glucose 106 H 103 H Lactate Calcium 8.6 Total Bilirubin 0.7 AST 23 ALT 17 Alkaline Phosphatase 78 Ammonia < 10.0 L Total Protein 6.2 Total Protein (PEP) Albumin 3.3 L Albumin (PEP) Globulin 2.9 Albumin/Globulin Ratio 1.1 Trpyc-7-Urxfrokce Byubi-0-Gcchbtcmj Ermd-9-Ijbtfzsu Nslu-4-Jalgrqrw Gamma Globulins Monoclonal Peak 3 Ser Monoclonl Protein Ser Monoclonal Prot 2 PEP Interpretation Urine Color Urine Appearance Urine pH Ur Specific [place] Urine Protein Urine Glucose (UA) Urine Ketones Urine Blood Urine Nitrite Urine Bilirubin Urine Urobilinogen Ur Leukocyte Esterase Urine WBC (Auto) Urine RBC (Auto) U Hyaline Cast (Auto) U Epithel Cells (Auto) Urine Bacteria (Auto) U Random Total Protein Ur Creatinine mg/dL Protein/Creatinin Ratio Urine Albumin (%) U Okasw-2-Amxnejey (%) U Qatvy-5-Mlyiaqea (%) U Beta Globulin (%) U Gamma Globulin (%) U Abnormal Prot Band 1 U Abnormal Prot Band 2 U Abnormal Prot Band 3 Urine PEP Interpret 02/07/24 02/07/24 02/07/24 00:45 07:33 07:52 WBC RBC Hgb Hct MCV MCH MCHC RDW Std Deviation RDW Coeff of Simon Plt Count MPV Immature Gran % (Auto) Neut % (Auto) Lymph % (Auto) [place] % (Auto) Eos % (Auto) Baso % (Auto) Neut # (Auto) Lymph # (Auto) [place] # (Auto) Eos # (Auto) Baso # (Auto) Immature Gran # (Auto) ABG pH ABG pCO2 ABG pO2 ABG HCO3 ABG O2 Saturation ABG Base Excess Been Test Oxygen Given Sodium 137 Potassium 4.2 Chloride 101 Carbon Dioxide 16 L Anion Gap 20 H BUN 63 H Creatinine 8.56 H* Est Cr Clr Drug Dosing 6.6 Est GFR ( Amer) 5.2 Est GFR (Non-Af Amer) 4.5 BUN/Creatinine Ratio 7.4 L Glucose 104 H POC Glucose 106 H Lactate 2.2 H* Calcium 8.3 L Total Bilirubin AST ALT Alkaline Phosphatase Ammonia Total Protein Total Protein (PEP) Albumin Albumin (PEP) Globulin Albumin/Globulin Ratio Uzeyr-5-Sfzxuadnq Dnhvz-0-Hsfgeervq Wecx-7-Obbtemep Mazy-2-Zgtnkwvj Gamma Globulins Monoclonal Peak 3 Ser Monoclonl Protein Ser Monoclonal Prot 2 PEP Interpretation Urine Color Yellow Urine Appearance Clear Urine pH 7.0 Ur Specific [place] 1.009 Urine Protein 2+ H Urine Glucose (UA) Trace H Urine Ketones 1+ H Urine Blood 1+ H Urine Nitrite Negative Urine Bilirubin Negative Urine Urobilinogen Negative Ur Leukocyte Esterase Trace H Urine WBC (Auto) 0-5 Urine RBC (Auto) 6-10 H U Hyaline Cast (Auto) 0-2 U Epithel Cells (Auto) 0-2 Urine Bacteria (Auto) None Seen U Random Total Protein Ur Creatinine mg/dL Protein/Creatinin Ratio Urine Albumin (%) U Uwrnz-9-Wqhzgtbh (%) U Jwgal-0-Jmcwbsfa (%) U Beta Globulin (%) U Gamma Globulin (%) U Abnormal Prot Band 1 U Abnormal Prot Band 2 U Abnormal Prot Band 3 Urine PEP Interpret 02/07/24 11:23 WBC RBC Hgb Hct MCV MCH MCHC RDW Std Deviation RDW Coeff of Simon Plt Count MPV Immature Gran % (Auto) Neut % (Auto) Lymph % (Auto) [place] % (Auto) Eos % (Auto) Baso % (Auto) Neut # (Auto) Lymph # (Auto) [place] # (Auto) Eos # (Auto) Baso # (Auto) Immature Gran # (Auto) ABG pH ABG pCO2 ABG pO2 ABG HCO3 ABG O2 Saturation ABG Base Excess Eben Test Oxygen Given Sodium Potassium Chloride Carbon Dioxide Anion Gap BUN Creatinine Est Cr Clr Drug Dosing Est GFR ( Amer) Est GFR (Non-Af Amer) BUN/Creatinine Ratio Glucose POC Glucose 113 H Lactate Calcium Total Bilirubin AST ALT Alkaline Phosphatase Ammonia Total Protein Total Protein (PEP) Albumin Albumin (PEP) Globulin Albumin/Globulin Ratio Aiwbl-6-Wzskdpobi Jkcqt-9-Kbwgdwuxl Xizr-9-Vmqqewkc Cxlr-2-Ehvgqesz Gamma Globulins Monoclonal Peak 3 Ser Monoclonl Protein Ser Monoclonal Prot 2 PEP Interpretation Urine Color Urine Appearance Urine pH Ur Specific [place] Urine Protein Urine Glucose (UA) Urine Ketones Urine Blood Urine Nitrite Urine Bilirubin Urine Urobilinogen Ur Leukocyte Esterase Urine WBC (Auto) Urine RBC (Auto) U Hyaline Cast (Auto) U Epithel Cells (Auto) Urine Bacteria (Auto) U Random Total Protein Ur Creatinine mg/dL Protein/Creatinin Ratio Urine Albumin (%) U Hujdy-9-Traiiinl (%) U Shxtu-0-Iyovvgvp (%) U Beta Globulin (%) U Gamma Globulin (%) U Abnormal Prot Band 1 U Abnormal Prot Band 2 U Abnormal Prot Band 3 Urine PEP Interpret PG Care Time/CCT Total # of Minutes Spent Total Time Spent with Patient: Total time spent is greater than 50% in coordination of care (as documented) at patient's floor/unit and/or counseling patient: Coding Level of Care Code 94119 SUB INP/OBS CARE MIN Diagnoses Acute renal failure N17.9 Acute renal failure type: unspecified High anion gap metabolic acidosis E87.29 Anemia D64.9 Type 2 diabetes mellitus without complication, without long-term current use of insulin E11.9 (1) Acute renal failure Acute renal failure type: unspecified Qualified Code(s): N17.9 - Acute kidney failure, unspecified
--- NOTE | 2024-02-07 13:45 | Discharge Summary ---
Date of Service February 07, 2024 Admission HPI Per Admitting Provider Keturah is a pleasant 63-year-old female with PMH of T2DM, GERD, right and left knee replacement, and eustachian tube dysfunction. She presented for acute onset of nausea and vomiting that started yesterday evening on 01/29. Patient reports that the vomiting was "vicious" overnight, and has been dark brown in consistency; unsure of coffee-ground emesis. She denies bright red blood in her vomit. No sick contacts. She denies diarrhea, constipation, or abdominal pain. She does note decreased urinary output. Patient reports that she has not been eating well since her right knee surgery on December 13, 2023. She has been eating approximately 20% of what she normally eats. That said she denies eating anything strange over the past 2 days (such as undercooked meats). She does endorse intermittent nausea since her surgery, and reports that she has been more restless and fidgety ever since his surgery. Last BM was today. She is on been unable to keep down her p.o. medications over the past 2 days, but did take 2 Tylenol yesterday, as well as 1 OTC Prilosec (20 mg). Patient has been taking Oxy IR 3 tablets in the evenings for a "tooth achy "pain in her right knee, that has been ongoing since the surgery. Patient reports that she had an SEAN in August after taking diclofenac.she discussed taking anti-inflammatories after her most recent knee surgery, and was prescribed a course of diclofenac 50 mg twice daily x 4 weeks, which she just stopped taking on Monday 01/29. She denies any smoking, tobacco use, or recent alcohol use. Patient notes that her brother was recently diagnosed with leukemia. No PMH of DVT/PE or MIs. Patient is a former dialysis nurse; was a dialysis nurse for 4 years. Patient is hypertensive at 142/89, and tachycardic at 125 bpm at time of admission; vitals otherwise stable. ED course: NSS 1000 mL IV Magnesium sulfate 1 g IV Zofran 4 mg IV Zosyn 4.5 g IV ROS: Patient endorses dizziness, headache, nausea, vomiting, mild blurry vision and photophobia, hoarseness, and decreased urinary output. Patient denies fever, chills, night sweats, fainting, falls, chest pain, chest pressure, chest palpitations, SOB, cough, pleuritic CP, hemoptysis, hematemesis, abdominal pain or cramping, diarrhea, or blood in urine or stool. Principal Diagnosis Acute renal failure Discharge Exam General:AOx3, NAD HEENT: NCAT CV: RRR, no m/r/g; mild edema b/l hands and feet Resp: CTAB GI: soft, nt/nd, + BS Skin: Warm, pink, dry Psych: speech slow but organized and coherent Discharge Data Allergies Allergy/AdvReac Type Severity Reaction Status Date / Time No Known Allergies Allergy Mild Verified 12/13/23 05:43 Consultations 01/31/24 20:10 ED Decision to Admit Stat 01/31/24 20:37 Consult Nephrology Routine 02/07/24 09:46 Consult Vascular Surgery Routine 02/07/24 13:08 Burn CD for patient Routine Ordered Studies Chest X-Ray 01/31/24 18:39 XR chest 1V portable FINDINGS: No pneumothorax. No pleural effusions. Stable punctate calcified granuloma within the left lung apex. Otherwise, the lungs are clear. The heart is normal in size. There is a moderate hiatus hernia, unchanged. IMPRESSION: No significant change compared to the prior study. No acute process. Abdomen/Pelvis CT 01/31/24 18:56 Exam(s): CT ABDOMEN + PELVIS Without Contrast FINDINGS: Lung bases: Unremarkable. No mass. No consolidation. Mediastinum: Moderate hiatal hernia. ABDOMEN: Liver: Unremarkable. Gallbladder and bile ducts: Unremarkable. No calcified stones. No ductal dilation. Pancreas: Unremarkable. No ductal dilation. Spleen: Unremarkable. No splenomegaly. Adrenals: Unremarkable. No mass. Kidneys and ureters: Unremarkable. No obstructing stones. No hydronephrosis. Stomach and bowel: Unremarkable. No obstruction. No mucosal thickening. PELVIS: Appendix: Normal appendix. Bladder: Thickening of the urinary bladder wall could relate to nondistention or cystitis. No stones. Reproductive: Unremarkable as visualized. ABDOMEN and PELVIS: Intraperitoneal space: Unremarkable. No free air. No significant fluid collection. Bones/joints: There are degenerative changes of the spine. No acute fracture. No dislocation. Soft tissues: Unremarkable. Vasculature: Unremarkable. No abdominal aortic aneurysm. Lymph nodes: Unremarkable. No enlarged lymph nodes. IMPRESSION: 1. Thickening of the urinary bladder wall could relate to nondistention or cystitis. 2. Moderate hiatal hernia. Chest X-Ray 02/06/24 19:10 XR chest 1V portable FINDINGS: No pneumothorax. Trace right and small left pleural effusions are new compared the prior study. The heart is mildly enlarged. Left basilar densities are noted. Interval interstitial and vascular thickening consistent with mild pulmonary edema. No acute fractures IMPRESSION: 1. Interval development of mild pulmonary edema with a trace right and small left pleural effusion. 2. Patchy left basilar densities are also new compared to the prior study. Head CT 02/07/24 11:[address] NONCONTRAST DOSE: 625.8 mGy.cm Findings: The paranasal sinuses and mastoid air cells are clear. The calvarium and skull base are intact. The ventricles and sulci are within normal limits. There is no mass, hematoma, midline shift, or acute infarct. Impression: No acute intracranial abnormality. Chest X-Ray 02/07/24 12:22 XR chest 2V PA/lateral FINDINGS: There are low lung volumes. No pneumothorax. The heart is mildly enlarged. Mild pulmonary edema and small bilateral pleural effusions have slightly progressed. Bibasilar densities are nonspecific but favor compressive atelectasis from the pleural effusions. No pneumothorax. A moderate hiatus hernia is noted. IMPRESSION: Interval progression of the mild pulmonary edema and small bilateral pleural effusions. Hospital Course (1) Nausea & vomiting: (2) GERD without esophagitis: (3) High anion gap metabolic acidosis: (4) Acute renal failure: (5) Tachycardia: (6) Type 2 diabetes mellitus: (7) Status post total right knee replacement: Oma Hernandez is a 63 year old female with PMH of T2DM and TKR, presenting with ac [place] renal injury. #Acute - Nausea/vomiting #Acute renal failure, ATN #HAGMA - Persistent n/v post knee surgery (12/12) w acute worsening 01/29. Acutely, sx most likely 2/2 acute renal failure/uremia. Started on PUD dosing of PPI, H2 kathy, carafate. - Acute renal failure likely in setting of NSAID use. Concern for ATN vs GN. Monitored closely w/o improvement. Despite clearance of casts in UA, Cr (baseline ~0.6) progressively increased during admission (8.56 at time of d/c). Transfer to [facility] for renal biopsy to clarify etiology. - Would likely benefit from permacath placement and HD at tertiary care center. - Initial VBG pH 7.06, improved to 7.33 with IV sodium bicarb. Continue sodium bicarb 1300 mg PO BID - Concern for peripheral edema d/t fluid overload in the setting of aggressive rehydration + renal failure. No indications for diuretics at this time. #Chronic - Nausea/Vomiting #Weight Loss #Malnutrition Patient with significant weight loss (~20 lbs over past year). Etiology unclear. Reports decreased appetite/early satiety since Sep. May be a component of restrictive eating. Did consult dietary while inpatient. Would recommend further workup with upper/lower scope and eval for other causes of questionably unintentional weight loss. Encourage PO, boosts, supplements etc #Leukocytosis - Increased WBC count (15.27 on 02/05), abnormal UA, concern for UTI. UCx pending. Pt has remained afebrile - Started IV Rocephin 1000 mg q24h #Tachycardia - Persistent HR > 100. 2x EKG showed normal sinus rhythm #Dizziness - Pt experiencing lightheadedness/dizziness intermittently for several months. CT head w/o con on 02/06 showed no acute intracranial abnormality. Consider more extensive vertigo workup if sx recur after resolution of uremia. #Type 2 diabetes mellitus: - Last A1c at 5.3% on 01/31 - Metformin and insulin held in setting of SEAN with reassuring last A1c #GERD without esophagitis - Prilosec held while PO intake is poor. Continue Protonix (40 mg IV BID) and famotidine (20 mg IV BID) and tums (500 mg PO TIDM) #Status post total right knee replacement - S/p right TKR on 12/13/23 - Continue oxycodone 5 mg p.o. q6h as needed for pain Total Time Total Time Spent Total Time Spent (In Minutes): See attending attestation. Discharge Plan Discharge Items Patient Disposition: Transfer Acute Care Hospital Reason For Visit: NAUSEA AND VOMITING Discharge Diagnosis: acute renal failure Activity: Per Instructions section Non-emergency contact: Primary Care Provider, [employer] and [employer] Officer Call non-emergency contact if: your pain is not controlled and your temperature is above 101 Follow-up/Referrals: Nicole Pearson MD [Primary Care Provider] - Diet: Regular Addtl Attending Provider Instructions: Plan Keturah Hernandez is a 63 year old female with PMH of T2DM and TKR, presenting with acute renal injury. #Nausea/vomiting #Poor appetite with early satiety - continue PPI and H2 kathy - add carafate 1 g PO QID - give lorazepam 0.5 mg IV - acutely, her nausea/vomiting most likely secondary to her acute renal failure/uremia - pt may benefit from further GI workup once discharged from the hospital for question - concern for #Acute renal failure, ATN - Cr baseline around 0.6, increasing since admission, 8.56 today - coughlin removed and IVF discontinued 02/05 PM - Nephrology consulted: continue to encourage intake and hydrate; dialysis recc'd; plan to transfer for renal biopsy to identify underlying causes; will likely need permacath for HD at tertiary care center #JEROD - initial pH 7.06, improved to 7.33 with IV sodium bicarb - sodium bicarb 1300 mg PO BID - AG today 21 - suspect the lack of further improvement is ATN with worsening kidney function vs poor po intake causing starvation ketosis, if hyperchloremic would switch to D5 solution Leukocytosis - WBC count increased to 15.27 - abnormal UA, concern for UTI. UCx pending. - pt has remained afebrile - started IV Rocephin [address] Head done prior to transfer - disc made and sent with patient Peripheral edema - CXR showed mild pulm edema, trace R and small L pleural effusion, and patchy L basilar densities. CXR 2V done prior to transfer - disc made and sent with patient #Tachycardia - EKG done to eval tachycardia. Normal sinus rhythm, no significant change from previous (01/30) #Type 2 diabetes mellitus: - Last A1c at 5.3% 01/31 - Hold metformin, Will defer insulin in setting of SEAN with reassuring last A1c #GERD without esophagitis - Hold home prilosec while PO intake is poor, - protonix 40 mg BID IV and famotidine 20 mg BID here - tums added to regime per nephro #Status post total right knee replacement - S/p right TKR on 12/13/23 - Continue oxycodone 5 mg p.o. q6h as needed for pain VTE PPx: SCDs (Cristino VTE predictive score of 3), encouraged ambulation as tolerated Pending Studies at Discharge: Yes Studies:: urine culture, CT Head, CXR 2 views Stand-Alone Forms: My [facility] Skilled Items Patient informed of condition?: Yes DNR: No Discharge Level of Care: Other Communicable Disease: No Discharge Prognosis: Stable Lines: Peripheral IV Urinary Catheter: No Medications and DC Order Prescriptions: Continued cholecalciferol (vitamin D3) 50 mcg (2,000 unit) capsule 50 mcg PO DAILY (DME) [place] [facility] [place] Instructions .MEDSUPPLY Qty: 1 0RF Rx Instructions: As directed acetaminophen [Tylenol Extra Strength] 500 mg tablet 1,000 mg PO TID 30 Days Qty: 180 0RF Rx Instructions: Take 3 times per day to lessen pain. ondansetron 4 mg tablet,disintegrating 4 mg PO Q8 PRN (Reason: nausea) Qty: 20 1RF Rx Instructions: Take as needed for nausea oxycodone 5 mg tablet 5 mg PO Q6 PRN (Reason: pain) Qty: 30 0RF cyanocobalamin (vitamin B-12) 1,000 mcg capsule 1,000 mcg PO DAILY duloxetine 30 mg capsule,delayed release(DR/EC) 30 mg PO DAILY PRN (Reason: nerve pain) (DME) OneTouch Verio test strips Strip See Rx Instructions .ROUTE .MEDSUPPLY Qty: 100 3RF Rx Instructions: To check fingersticks 1x/day (DME) blood-glucose meter [OneTouch Verio Flex Start] Kit See Rx Instructions .Route Qty: 1 0RF Rx Instructions: Use to check fingersticks 1x/day (DME) lancets [OneTouch Delica Plus Lancet] 33 gauge [facility] [place] See Rx Instructions .ROUTE .MEDSUPPLY Qty: 100 3RF Rx Instructions: To check fingersticks 1x/day omeprazole magnesium [Prilosec OTC] 20 mg Tablet,Delayed Release (Dr/Ec) 20 mg PO DAILY PRN (Reason: Heartburn) amoxicillin 500 mg tablet 2,000 mg PO ONCE PRN (Reason: prior to dental procedures) Rx Instructions: 4 tabs 1 hour prior to procedure metformin 500 mg tablet extended release 24 hr 500 mg PO BID rosuvastatin 40 mg tablet 40 mg PO QPM Discharge Orders: Discharge Order (Routine); Ordered 02/07/24 Ordered By: Ary Villeda Admission Data Admit Date/Time: 01/31/24 20:47 Attending Provider: Michael Toney Admit Provider: Samantha David Primary Care Provider: Nicole Pearson Other Providers: Samantha David; Aleida Thomason; Jorge Alvarez Supervising Physician Co-Signing Physician Notes Attending attestation Pt seen and examined in concert with Dr. Ugalde. In agreement with the documented findings as noted in the resident documentation with any exceptions or additions as noted here. No further recurrence of initial presenting emesis (usually daily recurrence, responds well to ondansetron 4mg IV q4). On examination, S1/S2 nl RRR no MCG. CTAB. Abd NT/ND BS+ve Acute renal failure with concern for ATN vs. other underlying etiology s/p HAGMA - nephrology consult - agree w/ transition for renal biopsy for diagnostic clarity in atypical presentation. Will need permacath placement and dialysis with further deterioration of renal function Nausea/vomiting, likely uremia vs. viral gastroenteritis - responds well to ondansetron, lorazepam ordered but not used. Continue famotidine. Leukocytosis - new elevation as above with abn UA without symptoms reported. Ceftriaxone initated while urine cultures pending, monitor for other signs/symptoms of infection. Dizziness, chronic - no etiology apparent, no recurrence while in hospital excepting possibly withe nausea/vomiting - patient agreeable to imaging of the head as part of w/u, can defer for outpatient at this time Else see resident documentation as noted. Total attending physician time spent with this patient's care on the day of tra nsfer: 40 minutes.
--- NOTE | 2024-02-07 14:17 | CT Scan Report ---
HEAD CT NONCONTRAST CT DOSE: 625.8 mGy.cm HISTORY: Dizziness TECHNIQUE: Multiaxial CT images of the head were performed without the use of intravenous contrast. A utomated exposure control was utilized for this study. A dose lowering technique was utilized adheri ng to the principles of ALARA. Comparison: None. Findings: The paranasal sinuses and mastoid air cells are clear. The calvarium and skull base are int act. The ventricles and sulci are within normal limits. There is no mass, hematoma, midline shift, or acute infarct. Impression: No acute intracranial abnormality. ACT 112: Negative or not required by law. Electronically signed by: Juan Hobbs M.D. 02/07/2024 2:16 PM
--- NOTE | 2024-02-07 15:23 | XRay Report ---
XR chest 2V PA/lateral HISTORY: eval effusion/pneumonia COMPARISON: Chest 02/06/2024. FINDINGS: There are low lung volumes. No pneumothorax. The heart is mildly enlarged. Mild pulmonary e dominique and small bilateral pleural effusions have slightly progressed. Bibasilar densities are nonspeci fic but favor compressive atelectasis from the pleural effusions. No pneumothorax. A moderate hiatus hernia is noted. IMPRESSION: Interval progression of the mild pulmonary edema and small bilateral pleural effusions. ACT 112: Negative or not required by law. Electronically signed by: Juan Hobbs M.D. 02/07/2024 3:22 PM
[2024-02-07] MEDS ORDERED: SODIUM BICARBONATE 650 MG TAB PO SCH (21:00)
== END 2024-02-07 15:27 | disposition short-term general hospital (02) | DRG 683 ==
LOC: ED 18:16 → 2S 20:47 → SUATTDRO 20:47 → 2S 21:11
DX: Z96.651 Presence of right artificial knee joint; J81.1 Chronic pulmonary edema; E46 Unspecified protein-calorie malnutrition; E87.20 Acidosis, unspecified; N00.8 Acute nephritic syndrome with other morphologic changes; Z98.890 Other specified postprocedural states; E11.9 Type 2 diabetes mellitus without complications; K21.9 Gastro-esophageal reflux disease without esophagitis; D72.829 Elevated white blood cell count, unspecified; E83.42 Hypomagnesemia; N17.0 Acute kidney failure with tubular necrosis; Z79.84 Long term (current) use of oral hypoglycemic drugs